=== PATIENT | male | born 1940 | race Caucasian/White ===

== ENCOUNTER 2018-03-14 17:28 | Inpatient (IN) | payer BC, MEDICARE ==
[~2018-03-14] VITALS: Ht 157.5 cm; Wt 51.9 kg
[2018-03-14] VITALS (7 sets, daily range): BP systolic 92–124; BP diastolic 62–92
[~2018-03-14 17:28] MED LIST: CARAFATE1 GM/10 ML PO; HYDROCODONE PO; METHOTREXATE PO; METHOTREXATE2.5 MG PO; NORCO 10-325 T1 EACH PO; PREDNISONE5 MG PO; XARELTO15 MG PO; XARELTO20 MG PO
--- OUTSIDE RECORDS SUMMARY | 2018-03-14 17:32 | XMS REPORT ---
[facility] Address Unknown Phone Unavailable Care Team Providers Care Submarine Advisory Team Watch Officer Name Role Phone Unavailable Unavailable Payers Payer Name Policy Type Policy Number Effective Date Expiration Date Problems This patient has no known problems. Allergies, Adverse Reactions, Alerts Allergy Name Allergy Type Status Severity Reaction(s) Onset Date Inactive Date Treating Clinician Comments Sulfa (Sulfonamide Antibiotics) DA Active 2018-01-25 00:00:00 clindamycin DA Active 2018-01-25 00:00:00 Sulfa (Sulfonamide Antibiotics) DA Active U 2018-01-08 00:00:00 clindamycin DA Active SV 2017-04-23 00:00:00 Sulfa (Sulfonamide Antibiotics) DA Active U 2017-04-23 00:00:00 zolpidem DA Active SV 2017-04-23 00:00:00 Medications This patient has no known medications.
[2018-03-14] MEDS ORDERED: DIGOXIN INJ 0.25 MG/ML 2 ML AMP IV ONE (18:00)
[2018-03-14 18:36] LABS: BASOPHILS # (AUTO) 0.1 (0.0-0.1); BASOPHILS % 0.6 % (0.0-1.0); EOSINOPHILS # (AUTO) 0.3 (0.0-0.4); EOSINOPHILS % 3.8 % (0.0-6.0); HEMATOCRIT 38.1 % (38.2-49.6); HEMOGLOBIN 11.9 g/dL (14.0-18.0); LYMPHOCYTES # (AUTO) 1.9 (1.0-3.2); LYMPHOCYTES % 22.8 % (18.0-39.1); MEAN CORPUSCULAR HEMOGLOBIN 30.1 pg (28-32); MEAN CORPUSCULAR HGB CONC 31.2 g/dL (31-35); MEAN CORPUSCULAR VOLUME 96.2 fL (81-99); MONOCYTES # (AUTO) 0.8 (0.2-0.8); MONOCYTES % 10.1 % (4.4-11.3); NEUTROPHILS # (AUTO) 5.1 (2.1-6.9); NEUTROPHILS % 62.2 % (38.7-80.0); PLATELET COUNT 260 x10e3/uL (140-360); RED BLOOD COUNT 3.96 x10e6/uL (4.3-5.7); RED CELL DISTRIBUTION WIDTH 15.5 % (11.7-14.4)
[2018-03-14 18:39] LABS: INR 0.89; PROTHROMBIN TIME 12.9 seconds (11.9-14.5)
[2018-03-14 18:40] LABS: PARTIAL THROMBOPLASTIN TIME 27.3 seconds (23.8-35.5)
--- NOTE | 2018-03-14 18:51 | Diagnostic Imaging Report ---
EXAMINATION: CHEST SINGLE (PORTABLE) INDICATION: Tachycardia. COMPARISON: 02/07/09.. FINDINGS: TUBES and LINES: Right chest Port-A-Cath with distal tip projected on the cavoatrial junction. LUNGS: Lungs are hypoinflated. Patchy density in the lower lobe suggestive of subsegmental atelectasis. Mild prominence of the pulmonary vasculature bilaterally. PLEURA: No pleural effusion or pneumothorax. HEART AND MEDIASTINUM: The cardiac silhouette is mildly enlarged. BONES AND SOFT TISSUES: Status post bilateral shoulder arthroplasty. UPPER ABDOMEN: No free air under the diaphragm. IMPRESSION: Bibasilar subsegmental atelectasis. Cardiomegaly and mild pulmonary venous congestion. Signed by: Dr. Sonya Singh M.D. on 03/14/2018 6:48 PM
[2018-03-14 18:52] LABS: ALANINE AMINOTRANSFERASE 42 IU/L (0-55); ALBUMIN 3.8 g/dL (3.5-5.0); ALBUMIN/GLOBULIN RATIO 1.5 (0.8-2.0); ALKALINE PHOSPHATASE 90 IU/L (40-150); ANION GAP 14.3 mmol/L (8-16); BLOOD UREA NITROGEN 30 mg/dL (7-26); BUN/CREATININE RATIO 15 (6-25); CALCIUM 8.7 mg/dL (8.4-10.2); CARBON DIOXIDE 23 mmol/L (22-29); CHLORIDE 105 mmol/L (98-107); CREATINE KINASE 58 IU/L (30-200); CREATININE, SERUM 2.03 mg/dL (0.72-1.25); EST GLOMERULAR FILTRATION RATE 32 ML/MIN (60-); GLUCOSE 111 mg/dL (74-118); LIPASE 18 U/L (8-78); POTASSIUM 4.3 mmol/L (3.5-5.1); SODIUM 138 mmol/L (136-145)
[2018-03-14 19:11] LABS: THYROID STIMULATING HORMONE 4.972 uIU/mL (0.350-4.940)
[2018-03-14 19:18] LABS: CLARITY,URINE CLEAR (CLEAR); COLOR,URINE YELLOW (YELLOW); KETONES,URINE NEGATIVE (NEGATIVE); LEUKOCYTE ESTERASE ,URINE NEGATIVE (NEGATIVE); NITRITE,URINE NEGATIVE (NEGATIVE); PROTEIN,URINE DIPSTICK 1+ (NEGATIVE)
[2018-03-14 19:19] LABS: BILIRUBIN,URINE NEGATIVE (NEGATIVE); URINE UROBILINOGEN 0.2 mg/dL (0.2 - 1)
[2018-03-14 19:21] LABS: BACTERIA,URINE FEW /HPF; EPITHELIAL CELLS,URINE FEW /LPF; RBC,URINE 0-5 /HPF (0-5); WBC,URINE (MAN) 0-5 /HPF (0-5)
[2018-03-14 19:42] LABS: B-TYPE NATRIURETIC PEPTIDE2 247.8 pg/mL (0-100)
[2018-03-14] MEDS ORDERED: AMIODARONE HCL 360MG 200 ML IV SCH (19:45)
[2018-03-14] MEDS ORDERED: AMIODARONE HCL 150MG 100 ML IV SCH (19:45)
[2018-03-14] MEDS ORDERED: AMIODARONE 900MG 500 ML IV SCH (20:00)
[2018-03-14] MEDS ORDERED: AMIODARONE HCL 100 ML IV ONE (20:03)
[2018-03-14] MEDS ORDERED: SODIUM CHLORIDE FLUSH 10 ML SYR INJ PRN (20:15)
[2018-03-14] MEDS ORDERED: AMLODIPINE BESY10 MG PO (21:44)
[2018-03-14] MEDS ORDERED: PREDNISONE5 MG PO (21:44)
[2018-03-14] MEDS ORDERED: ASPIRIN EC81 MG PO (21:44)
[2018-03-14] MEDS ORDERED: HYDRALAZINE HCL25 MG PO (21:44)
[2018-03-14] MEDS ORDERED: SODIUM BICARBO650 MG PO (21:44)
[2018-03-14] MEDS ORDERED: METOPROLOL TART50 MG PO (21:44)
[2018-03-14] MEDS ORDERED: MORPHINE SULFAT60 MG PO (21:44)
[2018-03-14] MEDS ORDERED: LEVOTHYROXINE25 MCG PO (21:44)
[2018-03-14] MEDS ORDERED: HYDROCODON-ACE1 EAC9 (21:44)
[2018-03-15] VITALS (55 sets, daily range): BP systolic 87–132; BP diastolic 27–95
[2018-03-15] MEDS ORDERED: AMIODARONE HCL 360MG 200 ML IV SCH
[2018-03-15] MEDS: AMIODARONE 900MG 500 ML IV SCH (02:32)
[2018-03-15 04:53] LABS: BASOPHILS % 0.7 % (0.0-1.0); EOSINOPHILS # (AUTO) 0.3 (0.0-0.4); EOSINOPHILS % 4.9 % (0.0-6.0); HEMATOCRIT 32.4 % (38.2-49.6); HEMOGLOBIN 10.6 g/dL (14.0-18.0); LYMPHOCYTES # (AUTO) 1.3 (1.0-3.2); LYMPHOCYTES % 21.5 % (18.0-39.1); MEAN CORPUSCULAR HEMOGLOBIN 30.4 pg (28-32); MEAN CORPUSCULAR HGB CONC 32.7 g/dL (31-35); MEAN CORPUSCULAR VOLUME 92.8 fL (81-99); MONOCYTES # (AUTO) 0.6 (0.2-0.8); MONOCYTES % 10.8 % (4.4-11.3); NEUTROPHILS # (AUTO) 3.6 (2.1-6.9); NEUTROPHILS % 61.6 % (38.7-80.0); PLATELET COUNT 218 x10e3/uL (140-360); RED BLOOD COUNT 3.49 x10e6/uL (4.3-5.7); RED CELL DISTRIBUTION WIDTH 15.1 % (11.7-14.4)
[2018-03-15 05:19] LABS: CREATINE KINASE 36 IU/L (30-200)
[2018-03-15 05:45] LABS: ALBUMIN 3.1 g/dL (3.5-5.0); ALBUMIN/GLOBULIN RATIO 1.7 (0.8-2.0); ANION GAP 13.1 mmol/L (8-16); CALCIUM 8.1 mg/dL (8.4-10.2); CREATININE, SERUM 1.67 mg/dL (0.72-1.25); POTASSIUM 4.1 mmol/L (3.5-5.1)
[2018-03-15] MEDS: HYDROCODONE/APAP 10MG-325MG TAB PO PRN ×3 (06:20→14:56)
[2018-03-15] MEDS ORDERED: MORPHINE SULFATE 30 MG TAB ER PO SCH (09:00)
[2018-03-15] MEDS ORDERED: LEVOTHYROXINE SODIUM 25 MCG TABLET PO SCH (09:00)
[2018-03-15] MEDS ORDERED: RIVAROXABAN 20 MG TABLET PO SCH (09:00)
[2018-03-15] MEDS ORDERED: AMLODIPINE BESYLATE 10 MG TAB PO SCH ×2 (09:00)
[2018-03-15] MEDS: SODIUM BICARBONATE 650 MG TAB PO SCH ×2 (09:23→17:34)
[2018-03-15] MEDS: METOPROLOL TARTRATE 50 MG TAB PO SCH ×2 (09:30→20:29)
[2018-03-15] MEDS: AMLODIPINE BESYLATE 5 MG TAB PO SCH (09:30)
[2018-03-15] MEDS: ASPIRIN 81 MG ENTERIC COATED PO SCH (09:30)
[2018-03-15] MEDS: PREDNISONE 5 MG TAB PO SCH (09:30)
--- NOTE | 2018-03-15 09:47 | Consultation ---
DATE OF CONSULTATION: March 14, 2018 REASON FOR CONSULTATION: AFib. HPI: This is a pleasant 77-year-old male that presented with palpitations. According to the patient, she started having rapid heartbeat in the 130s that he decided to come into the emergency room for evaluation. He stated he has been compliant with his medications, avoided caffeine and does not really know what is going on. He has a history of AFib and hypothyroidism. He was recently admitted and discharged from [facility] in January after having a left shoulder surgery, and went to rehab and recovered real good, and was discharged home. He denied any chest pain, any dizziness, any shortness of breath, or diaphoresis. Troponin was negative. EKG with AFib with RVR. BNP 247. TSH 4.9. He was started on an amiodarone drip from the emergency room, and heart rate is controlled now, but fluctuates. PAST MEDICAL HISTORY: Hypertension, right leg DVT, history of prostate cancer, history of cancer of sarcoma, rheumatoid arthritis, CKD, anemia, and diabetes. SURGICAL HISTORY: Cholecystectomy, prostate surgery, left and right shoulder surgery. FAMILY HISTORY: Noncontributory. SOCIAL HISTORY: He lives at home with the . No smoking. No drinking. MEDICATIONS: See med list. ALLERGIES: HE HAS MULTIPLE ALLERGIES. SEE CHART. REVIEW OF SYSTEMS: Negative except as mentioned above. PHYSICAL EXAMINATION VITAL SIGNS: Temperature 98, heart rate 81, blood pressure 118/87, respirations 16, oxygen saturation 95% on room air. GENERAL: He is awake, alert and oriented times 3. HEENT: Mucous membrane moist. NECK: Supple. LUNGS: Bilateral clear to auscultation. CARDIOVASCULAR: Irregularly irregular. ABDOMEN: Soft. NEUROLOGICAL: Intact. EXTREMITIES: With no edema. LABS: Sodium 137, potassium 4.1, chloride 108, CO2 20, BUN 26, creatinine 1.67, glucose 91. White blood cells 5.91, hemoglobin 10.6, hematocrit 32.4, and platelets 218,0008. PT 12.9, PTT 27.3 and INR 0.89. IMPRESSION 1. Atrial fibrillation. 2. Hypothyroidism. 3. Anemia. 4. Chronic kidney disease. 5. History of prostate cancer. 6. Recent left shoulder surgery. ASSESSMENT AND PLAN 1. He was started on an amiodarone drip. Will continue the same and switch to p.o. tonight. 2. He was at [facility] last month and had a recent echo with reserved systolic function with EF 50% to 55%. Will continue his home medications. Further cardiac workup pending clinical course. Thank you for this consultation. He was anticoagulated and will continue the same also. DICTATED BY MOLLY TILLMAN NP Job#: [id number] CUONG
[2018-03-15] MEDS: MORPHINE SULFATE 30 MG TAB ER PO SCH ×2 (10:55→20:30)
[2018-03-15 12:48] LABS: CREATINE KINASE 58 IU/L (30-200)
--- NOTE | 2018-03-15 17:25 | History and Physical ---
CHIEF COMPLAINT: Rapid heartbeat and shortness of breath. HISTORY OF PRESENT ILLNESS: This is a 77-year-old male with a past medical history of carcinoma of prostate, hypertension, DVT of the leg, recent left hip surgery, severe rheumatoid arthritis on prednisone 5 mg daily, who was in his usual state of health until the last 2 days he started developing some palpitation and increased blood pressure. Patient came to ER. ER shows AFib with rapid ventricular response at 121 per minute. No chest pain but has some shortness of breath. No bleeding per rectum, no hematemesis, no melena. No leg pain. Has left hip pain. No backache. No burning on urination. No seizures. No focal weakness. No diarrhea, no constipation. PAST MEDICAL HISTORY 1. Hypertension. 2. Carcinoma of prostate. 3. DVT of lower extremity, chronic. 4. Severe rheumatoid arthritis. PAST SURGICAL HISTORY: History of left hip replacement. ALLERGY: ALLERGIC TO SULFA AND CLINDAMYCIN. SOCIAL HISTORY: Patient , lives with his . HABITS: Denies smoking, denies alcohol use, denies illicit drug use. MEDICATION: List attached. REVIEW OF SYSTEMS CONSTITUTIONAL: Generalized fatigue and weakness. HEENT: No diplopia. No blurring of vision. CARDIOPULMONARY: No chest pain. Has some palpitation and shortness of breath. ALIMENTARY: No nausea, no vomiting, no diarrhea, no constipation. GENITOURINARY: Has no dysuria, no hematuria. MUSCULOSKELETAL: No joint pains. CENTRAL NERVOUS SYSTEM: No focal weakness. PHYSICAL EXAMINATION GENERAL: A 77-year-old male who is alert, oriented x3. No gross or acute respiratory distress. VITAL SIGNS: Temperature 98.2, pulse rate 110 per minute, respiratory rate 18, blood pressure 104/77. HEENT: Head atraumatic, normocephalic. Pupils are bilaterally equal and reactive to light. Extraocular muscles intact. NECK: Supple. No JVD. No carotid bruit. SKIN: Dry. LUNGS: Clear to auscultation and percussion bilaterally. No added sound. HEART: S1 and S2. Irregularly irregular. No S3, no S4, no murmur. ABDOMEN: Soft, nontender. No guarding, no rigidity. EXTREMITIES: No pedal edema. Peripheral pulses +1. MUSCULOSKELETAL: Has joint deformity seen. CENTRAL NERVOUS SYSTEM: Grossly nonfocal. Chest x-ray: Cardiomegaly, mild congestion. White count 8.23, hemoglobin 11.9, hematocrit 38.1, platelet 260. Chemistry: Sodium 138, potassium 4.3, BUN 30, creatinine 2.03. LFTs: AST 48. TSH 4.972. BNP 247. CK, CK-MB, troponin negative. EKG: AFib with new AFib with a rapid ventricular response at 121 per minute. ASSESSMENT 1. Atrial fibrillation with rapid ventricular response. 2. Mild congestive heart failure. 3. Hypertension. 4. Chronic deep vein thrombosis. 5. History of rheumatoid arthritis. 6. Left hip replacement. PLAN: Admit to ICU. IV amiodarone drip. Cardiology consult, Dr. Pino. Continue amlodipine 5 daily, metoprolol 25 b.i.d. Case discussed with Dr. Pino. Continue Eliquis 2.5 b.i.d. Lab tomorrow, BMP. Job#: [id number] EV
[2018-03-15] MEDS: FAMOTIDINE 20 MG TAB PO SCH (17:34)
[2018-03-15] MEDS: AMIODARONE HCL 200 MG TAB PO SCH (20:29)
[2018-03-15] MEDS: APIXAB 2.5 MG TABLET PO SCH (20:29)
--- NOTE | 2018-03-15 21:27 | NUR ---
report given top Mckayla BARAHONA
--- NOTE | 2018-03-15 22:01 | NUR ---
patient transferred to [facility] in stable condition. The receiving nurse Mckayla will continue the care of the patient. Patient was alert and oriented and vitals signs were: BP117/86, HR98, RR18, 02 100% RA.
--- NOTE | 2018-03-15 22:05 | NUR ---
RECEIVED REPORT FROM REBEL BARAHONA, PT TRANSFERRED TO #[id number], PT AAOX3, BREATHING EVEN AND UNLABORED.PT MADE COMFORTABLE IN ROOM,
[2018-03-16] MEDS: HYDROCODONE/APAP 10MG-325MG TAB PO PRN ×4 (00:19→23:52)
[2018-03-16] MEDS: AMIODARONE 900MG 500 ML IV SCH (02:01)
[2018-03-16 04:00] VITALS: BP 118/88
[2018-03-16] MEDS: LEVOTHYROXINE SODIUM 25 MCG TABLET PO SCH (05:46)
[2018-03-16 06:04] LABS: ANION GAP 13.6 mmol/L (8-16); CALCIUM 8.2 mg/dL (8.4-10.2); CREATININE, SERUM 1.73 mg/dL (0.72-1.25); POTASSIUM 4.6 mmol/L (3.5-5.1)
--- NOTE | 2018-03-16 06:06 | NUR ---
NO CHANGE IN PT'S STATUS, PT RESTING IN BED WITH EYES CLOSED BREATHING EVEN AND UNLABORED. WILL REPORT OFF TO TOBIAS BARAHONA.
[2018-03-16 06:23] LABS: CREATINE KINASE 25 IU/L (30-200)
[2018-03-16 08:00] VITALS: BP_SYST 118; BP_SYST 127; BP_DIAS 88; BP_DIAS 93
[2018-03-16] MEDS: FAMOTIDINE 20 MG TAB PO SCH ×2 (08:27→17:01)
[2018-03-16] MEDS: METOPROLOL TARTRATE 50 MG TAB PO SCH ×2 (08:28→20:49)
[2018-03-16] MEDS: ASPIRIN 81 MG ENTERIC COATED PO SCH (08:28)
[2018-03-16] MEDS: AMIODARONE HCL 200 MG TAB PO SCH ×2 (08:28→17:01)
[2018-03-16] MEDS: AMLODIPINE BESYLATE 5 MG TAB PO SCH (08:29)
[2018-03-16] MEDS: SODIUM BICARBONATE 650 MG TAB PO SCH ×2 (08:29→17:01)
[2018-03-16] MEDS: PREDNISONE 5 MG TAB PO SCH (08:29)
[2018-03-16] MEDS: MORPHINE SULFATE 30 MG TAB ER PO SCH ×2 (08:29→20:48)
[2018-03-16] MEDS: APIXAB 2.5 MG TABLET PO SCH ×2 (08:29→20:46)
[2018-03-16] MEDS ORDERED: AMIODARONE HCL 200 MG TAB PO SCH (09:00)
[2018-03-16] MEDS: ONDANSETRON HCL INJ 2 MG/ML VIAL IV PRN ×3 (11:43→19:53)
[2018-03-16 12:00] VITALS: BP 104/78
[2018-03-16] MEDS ORDERED: METOPROLOL TARTRATE INJ 1 MG/ML VIAL IV PRN (12:45)
[2018-03-16] MEDS ORDERED: DIGOXIN INJ 0.25 MG/ML 2 ML AMP IV ONE (13:00)
[2018-03-16 14:13] LABS: CHOL/HDL RATIO 2.7 (3.9-4.7); MAGNESIUM 2.5 MG/DL (1.3-2.1); PHOSPHORUS 3.2 MG/DL (2.3-4.7)
--- NOTE | 2018-03-16 15:27 | NUR ---
Nutrition Screen Note RD Recommendation for Physician: Continue diet as ordered Plan of Care: RD following, monitoring for adequacy and tolerance Nutrition reason for involvement: MD Consult Primary Diagnose(s): atrial fibrillation with RVR Ht: 62in Wt:130.44lbs BMI:23.9 kg/m2 IBW:118lbs RD Assessment:(03/16/2018) Initial encounter with patient. Diet Hx: Pt has no known food allergies. Medications: MAR reviewed. Physical activity and function: pt is able to feed himself. Nutrition - focused physical findings: no N, V, D, some biting chewing difficulty with beef, but does not desire a texture modification. Pt avoids eating eggs. Current Diet: cardiac diet Malnutrition Evaluation (03/16/2018) The patient does not meet criteria for a specified degree of malnutrition at this time. Will re-evaluate at follow-up as appropriate. Diet Education Needs Assessment: Diet education not indicated. Diet Adequacy: Meeting calorie needs, Meeting protein needs, Meeting fluid needs Tolerance: Tolerating PO Nutrition Care Level: Robert Herr RD, LD, [facility]
[2018-03-16 16:00] VITALS: BP 105/85
--- NOTE | 2018-03-16 19:20 | NUR ---
REPORT GIVEN BY TOBIAS BARAHONA, BOTH NURSES GAVE REPORT AT PT'S BEDSIDE. PT SITTING UP ON THE SIDE OF THE BED, STATES HE'S NAUSEATED, INFORMED HIM THIS NURSE WILL MEDICATE HIM WITH PRN ZOFRAN. PT STATES OK.
[2018-03-16 20:00] VITALS: BP 144/97
[2018-03-16 23:58] VITALS: BP 124/94
--- NOTE | 2018-03-17 | NUR ---
PT RESTING IN BED, MEDICATED WITH NORCO 10MG FOR CHRONIC PAIN, INSTRUCTED PT TO RELAX, PT STATED HE WOULD TRY.INFORMED HIM NURSE WILL CHECK ON HIM AND PLEASE NOTIFY NURSE IF THERES ANYTHING I COULD DO FOR HIM
[2018-03-17] MEDS: ONDANSETRON HCL INJ 2 MG/ML VIAL IV PRN ×2 (03:09→19:32)
--- NOTE | 2018-03-17 03:13 | NUR ---
pt nauseated and vomiting, medicated with zofran 4mg prn dose, pt given cold cloth for his head, and informed pt nurse will be back to check on him, pt verbalized understanding, call valencia in reach.
[2018-03-17 04:00] VITALS: BP 120/91
[2018-03-17] MEDS: HYDROCODONE/APAP 10MG-325MG TAB PO PRN ×2 (05:35→19:32)
--- NOTE | 2018-03-17 05:35 | NUR ---
Complete bed bath given, pt tolerated well, medicated for generalized pain. call valencia in reach, instructed pt to call when necessary. pt verbalized understanding
[2018-03-17] MEDS: LEVOTHYROXINE SODIUM 25 MCG TABLET PO SCH (06:00)
[2018-03-17 08:00] VITALS: BP 109/92
[2018-03-17] MEDS: FAMOTIDINE 20 MG TAB PO SCH ×2 (08:41→17:00)
[2018-03-17] MEDS: SODIUM BICARBONATE 650 MG TAB PO SCH ×2 (08:42→17:00)
[2018-03-17] MEDS: AMIODARONE HCL 200 MG TAB PO SCH ×2 (08:42→17:00)
[2018-03-17] MEDS: ASPIRIN 81 MG ENTERIC COATED PO SCH (08:42)
[2018-03-17] MEDS: PREDNISONE 5 MG TAB PO SCH (08:42)
[2018-03-17] MEDS: METOPROLOL TARTRATE 50 MG TAB PO SCH ×2 (08:42→19:37)
[2018-03-17] MEDS: APIXAB 2.5 MG TABLET PO SCH ×2 (08:42→21:41)
[2018-03-17] MEDS: MORPHINE SULFATE 30 MG TAB ER PO SCH ×2 (08:42→21:41)
[2018-03-17] MEDS: AMLODIPINE BESYLATE 5 MG TAB PO SCH (09:00)
[2018-03-17 12:00] VITALS: BP 113/91
[2018-03-17] MEDS: SUCRALFATE 1 GM TAB PO SCH (17:00)
[2018-03-17 19:32] VITALS: BP 90/75
[2018-03-17 19:36] VITALS: BP 90/75
--- NOTE | 2018-03-17 20:27 | NUR ---
patient resting with closed eyes, just medicated with [place] for back pain and Zofran for nausea earlier, vitals checked, no distress noted, bed alarm is on will continue monitoring.
--- NOTE | 2018-03-17 23:07 | NUR ---
Patient ok to go to floor from Cardiology stand point per Dr. Amberly Lou. RN spoke to Dr. Yash Emmanuel and obtained floor orders with telemetry.
[2018-03-17 23:26] VITALS: BP 105/91
--- NOTE | 2018-03-17 23:46 | NUR ---
just transferred patient to 103, nurse Awilda BARAHONA received the reports. he is stable, awake alert oriented, telemetry no 2402 is on. vitals just checked prior transferred;within normal level.
[2018-03-18] VITALS (10 sets, daily range): BP systolic 94–179; BP diastolic 58–91
[2018-03-18] MEDS: HYDROCODONE/APAP 10MG-325MG TAB PO PRN (01:48)
[2018-03-18] MEDS: ONDANSETRON HCL INJ 2 MG/ML VIAL IV PRN ×2 (05:03→12:42)
[2018-03-18] MEDS: LEVOTHYROXINE SODIUM 25 MCG TABLET PO SCH (05:03)
[2018-03-18 05:27] LABS: ALBUMIN 3.8 g/dL (3.5-5.0); ALBUMIN/GLOBULIN RATIO 1.3 (0.8-2.0); ANION GAP 16.6 mmol/L (8-16); CALCIUM 9.3 mg/dL (8.4-10.2); CREATININE, SERUM 2.07 mg/dL (0.72-1.25); POTASSIUM 4.6 mmol/L (3.5-5.1)
[2018-03-18 06:20] LABS: BASOPHILS # (AUTO) 0.1 (0.0-0.1); BASOPHILS % 0.6 % (0.0-1.0); EOSINOPHILS # (AUTO) 0.3 (0.0-0.4); EOSINOPHILS % 3.7 % (0.0-6.0); HEMATOCRIT 40.3 % (38.2-49.6); LYMPHOCYTES # (AUTO) 1.5 (1.0-3.2); LYMPHOCYTES % 18.7 % (18.0-39.1); MEAN CORPUSCULAR HEMOGLOBIN 30.4 pg (28-32); MEAN CORPUSCULAR HGB CONC 32.3 g/dL (31-35); MEAN CORPUSCULAR VOLUME 94.2 fL (81-99); MONOCYTES # (AUTO) 0.7 (0.2-0.8); MONOCYTES % 9.2 % (4.4-11.3); NEUTROPHILS # (AUTO) 5.3 (2.1-6.9); NEUTROPHILS % 67.3 % (38.7-80.0); PLATELET COUNT 264 x10e3/uL (140-360); RED BLOOD COUNT 4.28 x10e6/uL (4.3-5.7); RED CELL DISTRIBUTION WIDTH 14.6 % (11.7-14.4)
[2018-03-18] MEDS ORDERED: PANTOPRAZOLE SOD 40 MG TABEC PO SCH (07:30)
[2018-03-18] MEDS: AMIODARONE HCL 200 MG TAB PO SCH (08:45)
[2018-03-18] MEDS: SODIUM BICARBONATE 650 MG TAB PO SCH ×2 (08:45→17:23)
[2018-03-18] MEDS: AMLODIPINE BESYLATE 5 MG TAB PO SCH (08:45)
[2018-03-18] MEDS: PREDNISONE 5 MG TAB PO SCH (08:45)
[2018-03-18] MEDS: METOPROLOL TARTRATE 50 MG TAB PO SCH ×2 (08:45→21:53)
[2018-03-18] MEDS: ASPIRIN 81 MG ENTERIC COATED PO SCH (08:45)
[2018-03-18] MEDS: SUCRALFATE 1 GM TAB PO SCH ×3 (08:45→17:23)
[2018-03-18] MEDS: APIXAB 2.5 MG TABLET PO SCH ×2 (08:45→21:53)
[2018-03-18] MEDS: FAMOTIDINE 20 MG TAB PO SCH ×2 (08:45→17:23)
[2018-03-18] MEDS: MORPHINE SULFATE 30 MG TAB ER PO SCH ×2 (09:10→21:53)
--- NOTE | 2018-03-18 09:31 | NUR ---
spoke with md boston regarding discharge . md sharif discharge , reviewed bp meds at this time (adjusting medication orders ) given, md ledezma rounded states pt can go home when pt family brings bottles of medicine to show nurse prior to dc. orders received
[2018-03-18] MEDS ORDERED: METOPROLOL TARTRATE 50 MG TAB PO SCH (12:00)
[2018-03-18] MEDS: PANTOPRAZOLE 40 MG 10ML VIAL IV SCH (17:23)
--- NOTE | 2018-03-18 19:34 | NUR ---
RECEIVED PATIENT AAOX3, RESTING IN BED. STABLE CONDITION. DENIES ANY NEEDS. BED LOCKED AND IN LOWEST POSITION. CALL LIGHT WITHIN EASY REACH. WILL CONTINUE TO MONITOR THE PATIENT CLOSELY.
[2018-03-19] VITALS (8 sets, daily range): BP systolic 107–139; BP diastolic 69–92
[2018-03-19] MEDS ORDERED: PANTOPRAZOLE 40 MG 10ML VIAL IV STA (00:25)
[2018-03-19] MEDS: LEVOTHYROXINE SODIUM 25 MCG TABLET PO SCH (05:51)
--- NOTE | 2018-03-19 07:07 | NUR ---
pt sitting up at edge of bed aa0x3. pt is in no s.s of distress. pt is sl to the L fa 22. site is clean and dry. pt aware of stool sample collection for today. will bennett caballero for plans in terms of EGD procedure planned
[2018-03-19] MEDS: APIXAB 2.5 MG TABLET PO SCH ×2 (09:00→20:38)
[2018-03-19] MEDS: METOPROLOL TARTRATE 50 MG TAB PO SCH ×2 (09:00→21:30)
[2018-03-19] MEDS: MORPHINE SULFATE 30 MG TAB ER PO SCH ×3 (09:00→21:30)
[2018-03-19] MEDS: ASPIRIN 81 MG ENTERIC COATED PO SCH (09:22)
[2018-03-19] MEDS: PANTOPRAZOLE 40 MG 10ML VIAL IV SCH ×2 (09:22→16:44)
[2018-03-19] MEDS: AMIODARONE HCL 200 MG TAB PO SCH (09:22)
[2018-03-19] MEDS: FAMOTIDINE 20 MG TAB PO SCH ×2 (09:22→16:43)
[2018-03-19] MEDS: SUCRALFATE 1 GM TAB PO SCH ×3 (09:22→16:43)
[2018-03-19] MEDS: PREDNISONE 5 MG TAB PO SCH (09:24)
[2018-03-19] MEDS: SODIUM BICARBONATE 650 MG TAB PO SCH ×2 (09:24→16:44)
[2018-03-19] MEDS: HYDROCODONE/APAP 10MG-325MG TAB PO PRN (09:24)
[2018-03-19] MEDS: ONDANSETRON HCL INJ 2 MG/ML VIAL IV PRN (20:59)
--- NOTE | 2018-03-19 23:13 | NUR ---
consent for EGD signed and placed to chart. patient education printouts provided to patient. bed locked, and in lowest position, call light within easy reach, and bed alarm activated.
[2018-03-20] VITALS (9 sets, daily range): BP systolic 91–118; BP diastolic 56–80
[2018-03-20] MEDS: HYDROCODONE/APAP 10MG-325MG TAB PO PRN ×2 (05:15→14:15)
[2018-03-20] MEDS: LEVOTHYROXINE SODIUM 25 MCG TABLET PO SCH (05:15)
[2018-03-20 05:32] LABS: BASOPHILS # (AUTO) 0.1 (0.0-0.1); BASOPHILS % 0.7 % (0.0-1.0); EOSINOPHILS # (AUTO) 0.3 (0.0-0.4); EOSINOPHILS % 2.7 % (0.0-6.0); HEMATOCRIT 41.5 % (38.2-49.6); HEMOGLOBIN 13.2 g/dL (14.0-18.0); LYMPHOCYTES # (AUTO) 2.4 (1.0-3.2); LYMPHOCYTES % 20.3 % (18.0-39.1); MEAN CORPUSCULAR HEMOGLOBIN 29.6 pg (28-32); MEAN CORPUSCULAR HGB CONC 31.8 g/dL (31-35); MONOCYTES # (AUTO) 1.1 (0.2-0.8); NEUTROPHILS # (AUTO) 7.8 (2.1-6.9); PLATELET COUNT 265 x10e3/uL (140-360); RED BLOOD COUNT 4.46 x10e6/uL (4.3-5.7); RED CELL DISTRIBUTION WIDTH 14.2 % (11.7-14.4)
[2018-03-20 05:54] LABS: ANION GAP 15.6 mmol/L (8-16); CALCIUM 9.1 mg/dL (8.4-10.2); CREATININE, SERUM 2.2 mg/dL (0.72-1.25); POTASSIUM 4.6 mmol/L (3.5-5.1)
[2018-03-20] MEDS: FAMOTIDINE 20 MG TAB PO SCH ×2 (07:30→17:00)
[2018-03-20] MEDS: SUCRALFATE 1 GM TAB PO SCH ×4 (07:30→20:57)
[2018-03-20] MEDS: PREDNISONE 5 MG TAB PO SCH (09:00)
[2018-03-20] MEDS: ASPIRIN 81 MG ENTERIC COATED PO SCH (09:00)
[2018-03-20] MEDS: MORPHINE SULFATE 30 MG TAB ER PO SCH ×2 (09:00→20:57)
[2018-03-20] MEDS: AMIODARONE HCL 200 MG TAB PO SCH (09:00)
[2018-03-20] MEDS: PANTOPRAZOLE 40 MG 10ML VIAL IV SCH ×2 (09:00→20:57)
[2018-03-20] MEDS: APIXAB 2.5 MG TABLET PO SCH ×2 (09:00→20:57)
[2018-03-20] MEDS: SODIUM BICARBONATE 650 MG TAB PO SCH ×2 (09:00→20:57)
[2018-03-20] MEDS: METOPROLOL TARTRATE 50 MG TAB PO SCH ×2 (09:00→20:57)
--- NOTE | 2018-03-20 10:54 | NUR ---
WHEELED OFF UNIT VIA BED FOR EGD, NO CHANGE IN CONDITION
--- NOTE | 2018-03-20 12:35 | NUR ---
BACK IN ROOM VIA BED, AWAKE, DENIES ANY NEEDS AT THIS TIME, CALL LIGHT WITHIN REACH
--- NOTE | 2018-03-20 12:47 | Operative Report ---
DATE OF PROCEDURE: March 20, 2018 REFERRING PHYSICIAN: Dr. Yash Bañuelos. PROCEDURE PERFORMED: Esophagogastroduodenoscopy. INDICATIONS FOR PROCEDURE: History of melena, nausea and vomiting. MEDICATION: Patient was done under MAC. Please see anesthesiologist's note. PROCEDURE: With patient in left lateral decubitus position, the flexible fiberoptic Olympus gastroscope was introduced into the esophagus under direct visualization without any difficulty. There was some patchy erythema noted in distal esophagus. The scope was then advanced with ease into the stomach and the patient appears to be status post Billroth II. Anastomosis was intact and both efferent and afferent loops. Gastric stump polyps, somewhat large, x2 were removed per snare electrocautery. There was also some patchy intense erythema noted in the gastric stump and biopsies were obtained. The scope was then retroflexed into the gastric stump and the fundus and the cardia appeared to be within normal limits. The scope was then straightened out, was subsequently withdrawn. Patient tolerated the procedure well. IMPRESSIONS 1. Mild distal esophagitis. 2. Status post Billroth II, anastomosis intact. 3. Large gastric stump polyps x2, removed per snare electrocautery. 4. Gastric stump gastritis, biopsied. PLAN: Follow up histology. Add Carafate 1 g p.o. a.c. t.i.d. and nightly. Job#: [id number] TA cc:JOHNY BAÑUELOS MD,
--- NOTE | 2018-03-20 14:18 | NUR ---
MEDICATED PER MD ORDER FOR PAIN 11/16 BACK, TOLERATING PO AT THIS TIME, EDUCATED TO CALL BEFORE GETTING OUT OF BED, PT VERBALIZED UNDERSTANDING, CALL LIGHT WITHIN REACH
--- NOTE | 2018-03-20 15:28 | NUR ---
Nutrition Screen Note RD Recommendation for Physician: -Continue cardiac diet as ordered -Consider Ensure Compact BID if PO <50% Plan of Care: RD following, monitoring for adequacy and tolerance Nutrition reason for involvement: Follow up Primary Diagnose(s): atrial fibrillation with RVR PMHx: carcinoma of prostate, hypertension, DVT of the leg, recent left hip surgery, severe rheumatoid arthritis Ht: 62in Wt: 130.44lbs 03/14; 116.12lb 03/18 (possible inaccurate weight obtained) BMI:23.9kg/m2 IBW: 118lbs RD Assessment: 03/20 Chart reviewed. Pt had colonoscopy today with some polyps removed. During my visit, pt reports improved appetite with ~50-100% recorded PO intake. No GI complains noted. LBM 03/19, black stool per RN. GI is following. Pt has had some weight loss last year but weight remains stable this year at 123lb. No swallowing difficulty noted. Will continue to monitor and follow. (03/16/2018) Initial encounter with patient. Diet Hx: Pt has no known food allergies. Medications: MAR reviewed. Physical activity and function: pt is able to feed himself. Nutrition - focused physical findings: no N, V, D, some biting chewing difficulty with beef, but does not desire a texture modification. Pt avoids eating eggs. Current Diet: cardiac diet Malnutrition Evaluation (03/16/2018) The patient does not meet criteria for a specified degree of malnutrition at this time. Will re-evaluate at follow-up as appropriate. Diet Education Needs Assessment: Diet education not indicated. Diet Adequacy: Meeting calorie needs, Meeting protein needs, Meeting fluid needs Tolerance: Tolerating PO Nutrition Care Level: Low Signed by Awilda Wills, MS, RD, LD
[2018-03-20] MEDS: ONDANSETRON HCL INJ 2 MG/ML VIAL IV PRN (17:18)
--- NOTE | 2018-03-20 19:05 | NUR ---
WALKING ROUNDS PERFORMED, RECEIVED PT LAYING SEMI FOWLERS IN BED, AAOX3, RR EVEN AND NON-LABORED, ON RA. NO S/SX OF DISTRESS NOTED. LEFT PT LAYING SEMI FOWLERS IN BED, BED IN LOW LOCKED POSITION, SIDE RAILS UPX2, CALL LIGHT AND PHONE WITHIN REACH.
[2018-03-20] MEDS ORDERED: PROPOFOL IV EMULSION 10 MG/ML 50 ML VIAL ONE (20:13)
[2018-03-21] VITALS: BP 96/74
[2018-03-21 04:00] VITALS: BP 115/82
[2018-03-21] MEDS: LEVOTHYROXINE SODIUM 25 MCG TABLET PO SCH (04:35)
[2018-03-21] MEDS: HYDROCODONE/APAP 10MG-325MG TAB PO PRN ×2 (04:35→10:30)
[2018-03-21 07:10] VITALS: BP 105/75
--- NOTE | 2018-03-21 07:15 | NUR ---
Walking rounds completed and th pt. is currently sleeping. The siderails are up times two and alarms are activated.
[2018-03-21] MEDS: FAMOTIDINE 20 MG TAB PO SCH (07:30)
[2018-03-21] MEDS: SUCRALFATE 1 GM TAB PO SCH (07:30)
[2018-03-21 08:38] VITALS: BP 105/75
[2018-03-21] MEDS: ONDANSETRON HCL INJ 2 MG/ML VIAL IV PRN (09:19)
[2018-03-21] MEDS: APIXAB 2.5 MG TABLET PO SCH (09:19)
[2018-03-21] MEDS: AMIODARONE HCL 200 MG TAB PO SCH (09:19)
[2018-03-21] MEDS: PANTOPRAZOLE 40 MG 10ML VIAL IV SCH (09:19)
[2018-03-21] MEDS: ASPIRIN 81 MG ENTERIC COATED PO SCH (09:19)
[2018-03-21] MEDS: PREDNISONE 5 MG TAB PO SCH (09:20)
[2018-03-21] MEDS: METOPROLOL TARTRATE 50 MG TAB PO SCH (09:20)
[2018-03-21] MEDS: SODIUM BICARBONATE 650 MG TAB PO SCH (09:21)
[2018-03-21] MEDS: MORPHINE SULFATE 30 MG TAB ER PO SCH (09:21)
[2018-03-21] MEDS ORDERED: PANTOPRAZOLE SOD 40 MG TABEC PO SCH (21:00)
== END 2018-03-21 14:00 | disposition home health service (06) | DRG 309 ==
LOC: ER 17:28 → ERHOLD 21:21 → ICU 22:09 → IMCU 03-15 21:57 → MED/SURG 03-17 23:39
PROVIDERS: ADMIT Internal Medicine; ATTEND Internal Medicine
PROC: 0DB68ZX Excision of Stomach, Via Natural or Artificial Opening Endoscopic, Diagnostic (ICD-10-PCS; principal; 2018-03-20 11:35)
PROC: 0DB68ZX Excision of Stomach, Via Natural or Artificial Opening Endoscopic, Diagnostic (ICD-10-PCS; 2018-03-20 11:35)
DX: I48.2 Chronic atrial fibrillation (principal); I13.0 Hypertensive heart and chronic kidney disease with heart failure and stage 1 through stage 4 chronic kidney disease, or unspecified chronic kidney disease; M06.9 Rheumatoid arthritis, unspecified; I48.91 Unspecified atrial fibrillation; Z79.01 Long term (current) use of anticoagulants; Z86.718 Personal history of other venous thrombosis and embolism; Z96.642 Presence of left artificial hip joint; E03.9 Hypothyroidism, unspecified; D64.9 Anemia, unspecified; Z85.46 Personal history of malignant neoplasm of prostate; K29.70 Gastritis, unspecified, without bleeding; N18.9 Chronic kidney disease, unspecified; I50.9 Heart failure, unspecified
CPT/HCPCS: 36415; 43239; 43251; 71045; 80048; 80053; 80061; 81001; 82306; 82550; 82553; 83605; 83690; 83735; 83880; 84100; 84439; 84443; 84484; 84550; 85025; 85610; 85651; 85730; 87086; 88305; 88312; 93005; 99284; J1160; J2405; J7512

== ENCOUNTER → 2018-12-25 | Day surgery (SDC) | payer MEDICARE ==
--- NOTE | 2018-12-23 11:49 | Diagnostic Imaging Report ---
EXAMINATION: CHEST 2 VIEWS INDICATION: Pre-operative COMPARISON: Chest radiograph of 03/14/2018 FINDINGS: LINES/TUBES:Right chest subclavian port with catheter tip in the superior vena cava. LUNGS:The lungs are well-inflated. No focal consolidation or pulmonary edema. Mild left basilar subsegmental atelectasis. PLEURA:No pleural effusion or pneumothorax. MEDIASTINUM:The cardiomediastinal silhouette appears normal in size and shape. BONES/SOFT TISSUES:No acute osseous injury. Status post right and left total shoulder replacements. Diffuse osteopenia of the spine. ABDOMEN:No free air under the diaphragm. Status post cholecystectomy. IMPRESSION: No focal pneumonia or pulmonary edema. Signed by: Soumya De La Torre MD on 12/23/2018 11:46 AM
[2018-12-23 12:30] LABS: BASOPHILS % 0.5 % (0.0-1.0); EOSINOPHILS # (AUTO) 0.2 (0.0-0.4); EOSINOPHILS % 2.1 % (0.0-6.0); HEMATOCRIT 31.7 % (38.2-49.6); HEMOGLOBIN 9.5 g/dL (14.0-18.0); LYMPHOCYTES # (AUTO) 1.3 (1.0-3.2); LYMPHOCYTES % 16.2 % (18.0-39.1); MEAN CORPUSCULAR HEMOGLOBIN 24.7 pg (28-32); MEAN CORPUSCULAR VOLUME 82.6 fL (81-99); MONOCYTES # (AUTO) 0.8 (0.2-0.8); MONOCYTES % 10.3 % (4.4-11.3); NEUTROPHILS # (AUTO) 5.8 (2.1-6.9); NEUTROPHILS % 70.5 % (38.7-80.0); PLATELET COUNT 336 x10e3/uL (140-360); RED BLOOD COUNT 3.84 x10e6/uL (4.3-5.7)
[2018-12-23 12:49] LABS: ANION GAP 12.8 mmol/L (8-16); CALCIUM 8.8 mg/dL (8.4-10.2); CREATININE, SERUM 1.89 mg/dL (0.72-1.25); POTASSIUM 3.8 mmol/L (3.5-5.1)
[~2018-12-25] MED LIST changes: +AMLODIPINE BESY10 MG PO; +ASPIRIN EC81 MG PO; +BUPIVACAINE 0.25%/EPI 30ML SDV INJ ONE; +CEFAZOLIN SOD 1 GM VIAL ONE; +DEXAMETHASONE SOD PHOS INJ 4 MG/ML VIAL ONE; +DOCUSATE SODIU100 MG PO; +ELIQUIS PO; +FENTANYL CITRATE/PF 100MCG/2 ML INJ ONE; +FOLIC ACID1 MG PO; +FUROSEMIDE40 MG PO; +GLYCOPYRROLATE INJ 1MG/ 5 ML SYR ONE; +HYDRALAZINE HCL25 MG PO; +HYDROCODON-ACE1 EAC9; +HYDROCODONE/APAP 7.5MG-325MG 1 EA TAB ONE; +HYDROCORTISONE SOD SUCCINATE 100 MG VIAL ONE; +LEVOTHYROXINE25 MCG PO; +LIDOCAINE HCL 1% LOCAL INJ 20 ML VIAL ONE; +LIDOCAINE HCL 2% LOCAL INJ 5 ML SDV VIAL INJ ONE; +METOPROLOL TART50 MG PO; +MORPHINE SULFAT60 MG PO; +NEOSTIGMINE 1 MG/ML 10ML VIAL ONE; +NEOSTIGMINE 5 MG/5ML SYR ONE; +ONDANSETRON HCL INJ 2MG/ML 2ML 2 MG/ML VIAL ONE; +PHENYLEPHRINE HCL 1% 10 MG/ML VIAL ONE; +PROPOFOL IV EMULSION 10 MG/ML 20 ML VIAL ONE; +ROCURONIUM BROMIDE 10 MG/ML 5ML VIAL ONE; +SEVOFLURANE INHAL SOLN 250 ML PEN BTL ONE; +SODIUM BICARBO650 MG PO
--- NOTE | 2018-12-25 13:20 | Operative Report ---
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 ANESTHESIA: General. COMPLICATIONS: None. ESTIMATED BLOOD LOSS: 25 mL. DESCRIPTION OF PROCEDURE: With the patient lying in bed in the supine position, under good general endotracheal anesthesia, the scalp and forehead were prepped with Betadine solution and draped in the usual manner. The patient had a lesion that was about 3 cm x 3 cm in size with part of it ulcerated. A wide elliptical incision was then made to include the entire lesion with normal appearing skin all the way around. Incision was deepened through the subcutaneous tissue and all the way down to the bone and the lesion was totally and completely removed, and sent for pathological examination after appropriate marking. Hemostasis was then ascertained. The whole area was then infiltrated with 0.25% Marcaine with epinephrine. Wide flaps then had to be developed all the way down to the ear on the one side and to the lateral aspect of the scalp on the right side, and all the way around in order to be able to mobilize enough skin. The skin did reach, although with some tension and the wound was then closed with interrupted vertical mattress sutures of 2-0 nylon. Pressure dressing was applied. The sponge, lap, and needle counts were correct. The patient tolerated the procedure well and returned to the recovery room in stable condition. MD FARIDEH Louis/MODL /[id number]
[2018-12-25 13:35] VITALS: BP 115/90
== END | disposition home or self-care (01) ==
LOC: OR 06:57
PROVIDERS: ATTEND Surgery
DX: C44.40 Unspecified malignant neoplasm of skin of scalp and neck (principal); C61 Malignant neoplasm of prostate; L98.491 Non-pressure chronic ulcer of skin of other sites limited to breakdown of skin; M06.9 Rheumatoid arthritis, unspecified; I10 Essential (primary) hypertension; I48.91 Unspecified atrial fibrillation; Z88.1 Allergy status to other antibiotic agents; Z88.2 Allergy status to sulfonamides; Z01.810 Encounter for preprocedural cardiovascular examination; Z01.812 Encounter for preprocedural laboratory examination; Z01.818 Encounter for other preprocedural examination; Z79.02 Long term (current) use of antithrombotics/antiplatelets; Z86.718 Personal history of other venous thrombosis and embolism; Z86.73 Personal history of transient ischemic attack (TIA), and cerebral infarction without residual deficits
CPT/HCPCS: 14020; 36415; 71046; 80048; 85025; 88307; 93005; J0690; J1100; J1720; J2001; J2370; J2405; J2704; J2710; J3010; J3490

== ENCOUNTER 2019-01-02 15:34 | Inpatient (IN) | payer MEDICARE ==
[2019-01-02] VITALS (13 sets, daily range): BP systolic 95–134; BP diastolic 71–102
[~2019-01-02] VITALS: Ht 157.5 cm; Wt 55.5 kg
[~2019-01-02 15:34] MED LIST changes: -BUPIVACAINE 0.25%/EPI 30ML SDV INJ ONE; -CEFAZOLIN SOD 1 GM VIAL ONE; -DEXAMETHASONE SOD PHOS INJ 4 MG/ML VIAL ONE; -FENTANYL CITRATE/PF 100MCG/2 ML INJ ONE; -GLYCOPYRROLATE INJ 1MG/ 5 ML SYR ONE; -HYDROCODONE/APAP 7.5MG-325MG 1 EA TAB ONE; -HYDROCORTISONE SOD SUCCINATE 100 MG VIAL ONE; -LIDOCAINE HCL 1% LOCAL INJ 20 ML VIAL ONE; -LIDOCAINE HCL 2% LOCAL INJ 5 ML SDV VIAL INJ ONE; -NEOSTIGMINE 1 MG/ML 10ML VIAL ONE; -NEOSTIGMINE 5 MG/5ML SYR ONE; -ONDANSETRON HCL INJ 2MG/ML 2ML 2 MG/ML VIAL ONE; -PHENYLEPHRINE HCL 1% 10 MG/ML VIAL ONE; -PROPOFOL IV EMULSION 10 MG/ML 20 ML VIAL ONE; -ROCURONIUM BROMIDE 10 MG/ML 5ML VIAL ONE; -SEVOFLURANE INHAL SOLN 250 ML PEN BTL ONE
--- NOTE | 2019-01-02 15:54 | NUR ---
patient ambulated to room 193 for admission (direct admit). using cane. gait stable
[2019-01-02] MEDS ORDERED: AMIODARONE HCL 150MG 100 ML IV ONE (16:15)
[2019-01-02] MEDS ORDERED: AMIODARONE HCL 900 MG in DEXTROSE 5% 500ML 500 ML IV SCH (16:15)
[2019-01-02] MEDS ORDERED: AMIODARONE 900MG 500 ML IV SCH ×2 (16:45→23:00)
[2019-01-02] MEDS: APIXABAN 5 MG TABLET PO SCH (17:14)
--- NOTE | 2019-01-02 18:45 | NUR ---
20g p.iv started to right forearm without difficulty.
[2019-01-02 19:10] LABS: BASOPHILS % 0.5 % (0.0-1.0); EOSINOPHILS % 0.5 % (0.0-6.0); HEMATOCRIT 29.8 % (38.2-49.6); HEMOGLOBIN 8.8 g/dL (14.0-18.0); LYMPHOCYTES # (AUTO) 0.8 (1.0-3.2); LYMPHOCYTES % 9.8 % (18.0-39.1); MEAN CORPUSCULAR HEMOGLOBIN 23.8 pg (28-32); MEAN CORPUSCULAR HGB CONC 29.5 g/dL (31-35); MEAN CORPUSCULAR VOLUME 80.8 fL (81-99); MONOCYTES # (AUTO) 0.7 (0.2-0.8); MONOCYTES % 8.1 % (4.4-11.3); NEUTROPHILS # (AUTO) 6.6 (2.1-6.9); NEUTROPHILS % 80.9 % (38.7-80.0); PLATELET COUNT 299 x10e3/uL (140-360); RED BLOOD COUNT 3.69 x10e6/uL (4.3-5.7); RED CELL DISTRIBUTION WIDTH 15.2 % (11.7-14.4)
[2019-01-02 19:22] LABS: ALBUMIN 3.3 g/dL (3.5-5.0); ALBUMIN/GLOBULIN RATIO 1.4 (0.8-2.0); ANION GAP 12.4 mmol/L (8-16); CALCIUM 8.7 mg/dL (8.4-10.2); CREATININE, SERUM 2.02 mg/dL (0.72-1.25); MAGNESIUM 2.3 MG/DL (1.3-2.1); POTASSIUM 3.4 mmol/L (3.5-5.1)
--- NOTE | 2019-01-02 19:40 | Diagnostic Imaging Report ---
A single frontal view of the chest. HISTORY: Shortness of breath, A. fib COMPARISON: Chest radiograph December 23, 2018. DISCUSSION: Portable technique, limits sensitivity of the exam. Multiple overlying artifacts. Tubes/Lines: Unchanged appearance of the right chest port. Lungs and pleura: Low lung volumes result in bibasilar vascular crowding, accentuation of the pulmonary interstitial markings, central pulmonary vasculature, and the cardiac silhouette. Allowing for these limitations, the findings are as follows: Mild patchy retrocardiac opacity. No definite pleural effusion or pneumothorax is identified. Heart and mediastinum: The cardiomediastinal silhouette appear(s) unchanged. Bones and soft tissues: Bilateral total shoulder arthroplasties. IMPRESSION: Patchy retrocardiac opacity, may reflect atelectasis, pneumonia, and/or aspiration in the appropriate setting. Recommend short term follow up routine PA and lateral chest radiographs, in 6 to 8 weeks, to evaluate for resolution. Signed by: Dr. Kelton Asher D.O., M.M.M. on 01/02/2019 7:36 PM
[2019-01-02] MEDS: HYDROCODONE/APAP 10MG-325MG TAB PO PRN (19:50)
[2019-01-02] MEDS ORDERED: POTASSIUM CHLORIDE 10MEQ EA PO ONE (20:15)
[2019-01-02] MEDS: METOPROLOL TARTRATE 25 MG TAB PO SCH (20:43)
[2019-01-02] MEDS: AZITHROMYCIN 500MG/NS 250 ML 250 ML IV SCH (21:10)
[2019-01-02] MEDS: FAMOTIDINE 20 MG/2 ML VIAL IV SCH (21:10)
[2019-01-02] MEDS: CEFTRIAXONE SOD 2 GM/NS 100 ML 100 ML IV SCH (22:29)
[2019-01-03] VITALS (24 sets, daily range): BP systolic 85–122; BP diastolic 55–98
[2019-01-03] MEDS: METOPROLOL TARTRATE 25 MG TAB PO SCH ×4 (03:28→21:00)
[2019-01-03] MEDS: HYDROCODONE/APAP 10MG-325MG TAB PO PRN ×3 (03:29→15:42)
--- NOTE | 2019-01-03 04:48 | Consultation ---
DATE OF CONSULTATION: 01/02/2019 CHIEF COMPLAINT: Chest pain, shortness of breath and palpitation. HISTORY OF PRESENT ILLNESS: This is a 78-year-old male with a past medical history of atrial fibrillation, congestive heart failure, carcinoma of the prostate, hypertension, DVT in lower extremities, severe rheumatoid arthritis, chronic pain syndrome, who in his usual state of health until patient came to my office today with shortness of breath, chest pain, and increase in heart rate with a rapid ventricular response of atrial fibrillation at 150 per minute. Patient was sent to the Cardiology office. 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 Has bilateral leg pain. No abdomen pain. No nausea or vomiting. No hematemesis. No melena. No hematuria. No cough. Patient has chronic joint pain. No back pain. PAST MEDICAL HISTORY: 1. Carcinoma of the prostate. 2. Hypertension. 3. DVT of both lower extremities. 4. Rheumatoid arthritis. 5. Congestive heart failure. 6. Chronic renal insufficiency with CKD. 7. Atrial fibrillation. PAST SURGICAL HISTORY: History of total left hip replacement. ALLERGIES: ALLERGY TO SULFA, CLINDAMYCIN. SOCIAL HISTORY: The patient is . Lives with his . HABITS: Denies smoking. Denies alcohol use. Denies illicit drug use. MEDICATIONS: Restarted. PHYSICAL EXAMINATION: GENERAL: This is a 78-year-old male, who is alert and oriented x3, in no gross distress. VITAL SIGNS: Temperature 98.2, pulse 102, respirations 16, blood pressure 116/98. HEENT: Head is atraumatic and normocephalic. Pupils bilaterally equal and reactive to light. Extraocular muscles are intact. NECK: Supple. No JVD. No carotid bruit. LUNGS: Clear to auscultation and percussion bilaterally. No added sounds. HEART: S1 and S2. Tachycardia. No S3. No S4. No murmur. ABDOMEN: Soft, nontender. No guarding. No rigidity. EXTREMITIES: Chronic mild edema. GLASS ARTIST: Grossly nonfocal. RADIOGRAPHIC DATA: Chest x-ray, possible pneumonia. EKG, atrial fibrillation with 140 per minute. LABORATORY DATA: White count 8.414, hemoglobin 8.8, hematocrit 29.8, and platelets 299. Sodium 132, potassium 3.4, BUN 33, creatinine 2.02, ASSESSMENT: 1. Atrial fibrillation with rapid ventricular response. 2. Congestive heart failure. 3. Chronic kidney disease. 4. Anemia. 5. Chronic deep venous thrombosis. 6. History of rheumatoid arthritis. 7. Chronic pain syndrome. 8. Pneumonia. 9. History of carcinoma of the prostate. PLAN: Admit patient to ICU. IV amiodarone, IV Rocephin 2 g daily, IV Zithromax 500 mg daily. Hematologic consult, Dr. Pérez management. Lab in the morning. Condition and prognosis were explained to the patient. MD KOREY Schaffer/SHIVA /[id number]
[2019-01-03 05:22] LABS: BASOPHILS # (AUTO) 0.1 (0.0-0.1); BASOPHILS % 0.7 % (0.0-1.0); EOSINOPHILS # (AUTO) 0.2 (0.0-0.4); EOSINOPHILS % 2.1 % (0.0-6.0); HEMATOCRIT 24.8 % (38.2-49.6); HEMOGLOBIN 7.5 g/dL (14.0-18.0); LYMPHOCYTES # (AUTO) 1.2 (1.0-3.2); LYMPHOCYTES % 16.5 % (18.0-39.1); MEAN CORPUSCULAR HEMOGLOBIN 24.3 pg (28-32); MEAN CORPUSCULAR HGB CONC 30.2 g/dL (31-35); MEAN CORPUSCULAR VOLUME 80.3 fL (81-99); MONOCYTES # (AUTO) 0.8 (0.2-0.8); MONOCYTES % 11.3 % (4.4-11.3); NEUTROPHILS # (AUTO) 4.8 (2.1-6.9); NEUTROPHILS % 69.1 % (38.7-80.0); PLATELET COUNT 250 x10e3/uL (140-360); RED BLOOD COUNT 3.09 x10e6/uL (4.3-5.7); RED CELL DISTRIBUTION WIDTH 15.2 % (11.7-14.4)
[2019-01-03 05:43] LABS: ANION GAP 9.7 mmol/L (8-16); CALCIUM 8.1 mg/dL (8.4-10.2); CREATININE, SERUM 2.06 mg/dL (0.72-1.25); POTASSIUM 3.7 mmol/L (3.5-5.1)
--- NOTE | 2019-01-03 09:15 | NUR ---
Dr Eaton in with patient. He orders to give the: eliquis, metoprolol, and start PO amiodarone, and continue the IV amiodarone until it completes. He advises to anticipate discharge this afternoon. Addendum: 01/04/19 at 0741 by Sarah Eastman RN Patient with systolic blood pressures in the 90's. Dr Mattie Emmanuel noted these numbers while visiting and instructed to give metoprolol and iv and po amiodarone with these BPs stating pt's blood pressure will be ok.
[2019-01-03] MEDS: FAMOTIDINE 20 MG/2 ML VIAL IV SCH ×2 (09:21→17:32)
[2019-01-03] MEDS: APIXABAN 5 MG TABLET PO SCH ×2 (09:22→17:17)
[2019-01-03] MEDS: AMIODARONE HCL 200 MG TAB PO SCH ×2 (09:24→21:17)
[2019-01-03] MEDS: MORPHINE SULFATE 30 MG TAB ER PO PRN (12:42)
--- NOTE | 2019-01-03 15:24 | NUR ---
Have called to notify Dr Braun of consult for pneumonia. Call taken by María.
--- NOTE | 2019-01-03 16:38 | NUR ---
Nutrition Intervention Note RD Recommendation(s) for Physician: - Rec Ensure clear TID with meals - Consider liberalization of diet due to poor intake - The patient meets criteria for unspecified SEVERE protein-calorie malnutrition Plan of Care: RD following, monitoring for tolerance and adequacy, ONS rec Nutrition reason for involvement: Nutrition Risk Trigger MST 2 RD Assessment 01/03 78yo M, who was admitted for Afib with RVR and CHF. Pt stated he has been eating <50% of meals for > 1 month prior to admission. Pt mentioned he is trying to eat >50% of his meals. Pt reported he had lost wt and used to weigh 135 lbs 6 months ago. Per chart, pt had consumed 25% of dinner on 01/02. Pt has weights ranging from 110 to 114 lbs in chart for this admission. If accurate, this would be a 16-19% wt loss in 6 months severe wt loss. No N/V/D/C reported and no chewing/swallowing issues. Performed NFPE, pt showed moderate severe signs of generalized muscle and fat depletion. Pt was interested in Ensure clear- will provide with meals. Will continue to monitor. Principal Problems/Diagnoses: afib with RVR PMH: afib, CHF, carcinoma of prostate, HTN, DVT in lower extremities, severe RA, chronic pain syndrome I/O: +467/-400 GI: flat, soft abdomen Skin: intact Labs: (01/03) Na 130, BUN, Creat 2.06, Ca 8.1 Meds: (01/03) azithromycin, metroprolol, famotidine Ht: 62 inches Wt: 110.37 lbs BMI: 20.2kg/m2 IBW: 118 lbs +/- 10% Malnutrition Evaluation (01/03) The patient meets criteria for unspecified SEVERE protein-calorie malnutrition Energy intake: <50% of estimated energy requirements for >1 month Weight loss: >10% in 6 months (Chronic) Fat loss: Moderate: apparent ribs Muscle loss: Moderate - severe: temporal depression, squaring of shoulder, depression line on the thigh Supporting Evidence: Fluid accumulation: chronic mild edema in extremities per chart Functional Status: unable to evaluate Nutrition Prescription (Diet Order): cardiac diet Estimated Nutritional Needs: Calories: 7275-9117 kcal (25-35 kcal/kg) Weight used : 110 lbs Protein: 50-75 g/day (1-1.5 g/kg) Weight used: 110 lbs Diet Adequacy: Not meeting calorie needs, Not meeting protein needs Tolerance: Tolerating PO Diet Education Needs Assessment: Diet education not indicated Nutrition Care Level: High Nutrition Diagnosis: Severe protein-calorie malnutrition related to chronic illness as evidenced by pt meeting <75% of energy needs for > 1 month, >10% wt loss in 6 months, and moderate-severe muscle and fat depletion Goal: Patient will meet 75-100% of estimated needs by follow up Progress: N/A Interventions: Commercial beverage, General healthful diet Monitoring/Evaluation: -Total energy intake, Total protein intake, Liquid supplement, Weight change Signed: Awilda Wills, MS, RD, LD
--- NOTE | 2019-01-03 16:47 | Diagnostic Imaging Report ---
Chest, 2 views, 01/03/2019. History: A. Fib. Comparison: 01/02/2019. Findings: The cardiomediastinal silhouette and pulmonary vasculature are within normal limits. There is no evidence of consolidation or pleural effusion. There is no visible retrocardiac opacity. Right subclavian Port-A-Cath and bilateral shoulder prostheses are unchanged. There are no acute osseous or soft tissue abnormalities. Impression: No acute cardiopulmonary abnormality. Signed by: Timmy Cabrera on 01/03/2019 4:44 PM
[2019-01-03] MEDS ORDERED: DEXAMETHASONE PHOS 10MG INJ 20 MG in SODIUM CHLORIDE 0.9% 50ML 50 ML IV ONE (17:00)
[2019-01-03] MEDS ORDERED: FAMOTIDINE INJ 20 MG in SODIUM CHLORIDE 0.9% 50ML 50 ML IV ONE (17:30)
[2019-01-03 17:44] LABS: ABG PCO2 38 mmHg (41-51); ABG PH 7.46 (7.31-7.41)
[2019-01-03 17:45] LABS: ABG HCO3 27 mmol/L (23-28); ABG PO2 161 mmHg (80-105)
[2019-01-03] MEDS ORDERED: DIPHENHYDRAMINE HCL INJ 25 MG in SODIUM CHLORIDE 0.9% 50ML 50 ML IV ONE (18:00)
[2019-01-03] MEDS ORDERED: IRON DEXTRAN INJ 50 MG in SODIUM CHLORIDE 0.9% 100 ML IV ONE (18:30)
--- NOTE | 2019-01-03 18:49 | NUR ---
Pt was premedicated and then infused dextran initial dose, which has ended now. No current complications noted.
[2019-01-03] MEDS ORDERED: IRON DEXTRAN INJ 500 MG in SODIUM CHLORIDE 0.9% 500ML 500 ML IV PRN (20:00)
[2019-01-03] MEDS: AZITHROMYCIN 500MG/NS 250 ML 250 ML IV SCH (20:59)
[2019-01-03] MEDS: CEFTRIAXONE SOD 2 GM/NS 100 ML 100 ML IV SCH (21:00)
[2019-01-03] MEDS ORDERED: HYDROMORPHONE 1MG/1ML INJ IV PRN (21:15)
[2019-01-03] MEDS ORDERED: HYDROMORPHONE 2MG/ML 2 MG/ML ML ONE (21:26)
[2019-01-03] MEDS: HYDROMORPHONE 2MG/ML 2 MG/ML ML IV PRN (21:26)
--- NOTE | 2019-01-03 23:53 | Consultation ---
DATE OF CONSULTATION: 01/03/2019 Pulmonary Consultation The patient of Dr. Madison Emmanuel, Dr. Neo Emmanuel, Dr. Pérez, Dr. Piper. HISTORY OF PRESENT ILLNESS: A charming 78-year-old gentleman admitted from doctor's office with shortness of breath, palpitations, and chest pain. Found to be in atrial fibrillation with rapid response. He has had atrial fibrillation before. PAST MEDICAL HISTORY: History of heart failure and DVT, carcinoma of the prostate treated in the past with radical cryo prostatectomy, radiation and chemotherapy, required a suprapubic tube at that time. History of severe rheumatoid arthritis, history of DVTs in the past. ALLERGIES: HE IS ALLERGIC TO SULFUR AND CLEOCIN. MEDICATIONS: Include Colace, folic acid, Lasix, methotrexate, metoprolol, prednisone 5 mg, and Carafate as well as MS Contin and Eliquis. PAST SURGICAL HISTORY: He has had recent surgery on the scalp for squamous cell carcinoma. SOCIAL HISTORY: Born in [place]. 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 He says he is losing weight approximately 40 pounds. He has been seen earlier today by Dr. Pérez. PHYSICAL EXAMINATION: GENERAL: A slight white male, anxious, dyspneic earlier, but comfortable now at rest. VITAL SIGNS: Temperature 97, pulse 82, blood pressure 100/74. HEAD: Normocephalic and atraumatic. NECK: Trachea midline. LUNGS: Bibasilar rales. HEART: Irregular rhythm. ABDOMEN: Nontender. EXTREMITIES: Nonedematous with rheumatoid changes. IMPRESSION: 1. Congestive heart failure. 2. Atrial fibrillation with rapid ventricular response. 3. Anemia. 4. Weight loss. 5. History of carcinoma of the prostate. PLAN: Support hemoglobin falling from 11.3 to 7.5. Continue anticoagulation as tolerated. The patient is a nonsmoker. We will request chest x-ray 2 views. Chest x-ray on the revealed a vague left lower lobe infiltrate. Requested 2-view x-ray. Carcinoma apparently was treated in 2006. There is no pathology report regarding prostate. Continue supplemental oxygen. Cannot completely exclude the possibility of a nonspecific interstitial pneumonitis, but plan therapy for congestive heart failure at this time and replacement of iron. Thank you for this kind referral. MD MYRNA Muhammad/SHIVA /[id number]
[2019-01-04] VITALS (23 sets, daily range): BP systolic 78–115; BP diastolic 53–100
[2019-01-04] MEDS: MORPHINE SULFATE 30 MG TAB ER PO PRN (01:35)
--- NOTE | 2019-01-04 02:04 | History and Physical ---
CHIEF COMPLAINT: Palpitation and weakness. HISTORY OF PRESENT ILLNESS: The patient is 78-year-old, whom I saw in clinic, presented with tachycardia. EKG showed atrial fibrillation with RVR, heart rates in the 140s to 150s and he was feeling weak, dizzy, short of breath. Echocardiogram revealed preserved left ventricular ejection fraction and no severe valvular abnormalities. No pericardial effusion. Given his symptoms and very high heart rate, decision was made to send the patient to the hospital for IV amiodarone and possible cardioversion. Overnight, his heart rate became well controlled now in the 80s, though he remains in atrial fibrillation. He feels a lot better and was converted to oral amiodarone. However, labs showed multiple abnormalities, which require further workup and possible pneumonia on chest x-ray, which requires treatment. The patient will remain in the hospital to address these issues. PAST MEDICAL HISTORY: 1. Prostate cancer. 2. Hypertension. 3. DVT of both lower extremities, on anticoagulation. 4. Rheumatoid arthritis. 5. Congestive heart failure. 6. Chronic renal insufficiency. 7. Atrial fibrillation. PAST SURGICAL HISTORY: Total hip replacement. ALLERGIES: ALLERGIC TO SULFA AND CLINDAMYCIN. SOCIAL HISTORY: Does not smoke, drink, or abuse drugs. He is , lives with his . FAMILY HISTORY: Noncontributory. OUTPATIENT MEDICATIONS: Reviewed. OBJECTIVE: VITAL SIGNS: Temperature afebrile, pulse 83, respiratory rate 14, blood pressure 100/78, saturating 100% on 2 L nasal cannula. GENERAL: Elderly man, thin, well-developed, no acute distress. CARDIOVASCULAR: Irregular rate and rhythm. No murmurs, rubs, or gallops. LUNGS: Decreased breath sounds bilaterally at the bases. ABDOMEN: Soft, nontender, nondistended. No masses. NEUROLOGIC AND PSYCHIATRIC: Alert and oriented to person, place, and time. Normal affect. INPATIENT MEDICATIONS: Reviewed. LABORATORY DATA: Reviewed. Notable for a hemoglobin of 7.5, down from hemoglobin of 8.8 yesterday. Sodium of 130, potassium of 3.7, creatinine of 2. Troponins negative. BNP 327. IMAGING DATA: Reviewed. Initial chest x-ray shows patchy retrocardiac opacity concerning for pneumonia, this has improved on a followup chest x-ray today. TELEMETRY DATA: Reviewed. It shows atrial fibrillation with rapid ventricular response, now better rate controlled with heart rates in 80s and 90s. ASSESSMENT: 1. Atrial fibrillation with rapid ventricular response, now rate controlled. 2. Anemia. 3. Chronic kidney disease. 4. Possible pneumonia. 5. Hyponatremia. PLAN: over the horizon targeting supervisor to oral amiodarone. Rate control is much better now. Continue metoprolol 25 mg b.i.d. Continue apixaban for now as there are no signs of overt GI bleeding. We will defer workup to the medical team. We will continue to follow. MD ROSS WarrenP/MODL /[id number]
[2019-01-04] MEDS: METOPROLOL TARTRATE 25 MG TAB PO SCH ×3 (03:00→15:00)
[2019-01-04 05:31] LABS: CALCIUM 8.1 mg/dL (8.4-10.2); CREATININE, SERUM 2.22 mg/dL (0.72-1.25)
[2019-01-04] MEDS: HYDROMORPHONE 2MG/ML 2 MG/ML ML IV PRN ×4 (05:44→20:00)
[2019-01-04 06:08] LABS: ANION GAP 11.7 mmol/L (8-16); POTASSIUM 4.7 mmol/L (3.5-5.1)
[2019-01-04 07:09] LABS: BASOPHILS % 0.1 % (0.0-1.0); EOSINOPHILS # (AUTO) 0.2 (0.0-0.4); EOSINOPHILS % 1.7 % (0.0-6.0); HEMATOCRIT 28.4 % (38.2-49.6); HEMOGLOBIN 8.4 g/dL (14.0-18.0); LYMPHOCYTES # (AUTO) 0.8 (1.0-3.2); LYMPHOCYTES % 8.5 % (18.0-39.1); MEAN CORPUSCULAR HEMOGLOBIN 23.9 pg (28-32); MEAN CORPUSCULAR HGB CONC 29.6 g/dL (31-35); MEAN CORPUSCULAR VOLUME 80.9 fL (81-99); MONOCYTES # (AUTO) 0.2 (0.2-0.8); MONOCYTES % 2.5 % (4.4-11.3); NEUTROPHILS # (AUTO) 8.2 (2.1-6.9); NEUTROPHILS % 86.8 % (38.7-80.0); PLATELET COUNT 299 x10e3/uL (140-360); RED BLOOD COUNT 3.51 x10e6/uL (4.3-5.7); RED CELL DISTRIBUTION WIDTH 15.3 % (11.7-14.4)
--- NOTE | 2019-01-04 07:47 | Diagnostic Imaging Report ---
EXAMINATION: CHEST SINGLE (PORTABLE) INDICATION: Short of breath COMPARISON: Chest radiograph 01/03/2019 FINDINGS: AP view TUBES and LINES: Right chest wall port with right subclavian central venous catheter, tip in the superior cavoatrial junction.. LUNGS: Lungs are adequately inflated. Lungs are clear. There is no evidence of pneumonia or pulmonary edema. PLEURA: No pleural effusion or pneumothorax. HEART AND MEDIASTINUM: Cardiac size is mildly enlarged. BONES AND SOFT TISSUES: No acute osseous lesion. Soft tissues are unremarkable. The partially visualized components of the bilateral shoulder arthroplasty hardware appear intact. Leftward convex curvature of the lower thoracolumbar spine. UPPER ABDOMEN: No free air under the diaphragm. IMPRESSION: No acute thoracic radiographic abnormality. Mild cardiomegaly. Signed by: Maverick Dorsey DO on 01/04/2019 7:43 AM
[2019-01-04] MEDS: AMIODARONE HCL 200 MG TAB PO SCH ×2 (09:01→22:08)
[2019-01-04] MEDS: APIXABAN 5 MG TABLET PO SCH ×2 (09:01→18:44)
[2019-01-04] MEDS: FAMOTIDINE 20 MG/2 ML VIAL IV SCH ×2 (09:01→22:08)
--- NOTE | 2019-01-04 10:00 | NUR ---
ok per Dr. Cat Emmanuel for pt to go to floor if ok with cardiology. waiting for Dr. Hayes to round for orders. will continue to monitor
--- NOTE | 2019-01-04 19:00 | NUR ---
Report received. Assumed care. Assessment done. See interventions. Scalp incision with sutures intact. IV saline locked. No c/o verbalized.
--- NOTE | 2019-01-04 20:00 | NUR ---
Medicated for c/o pain. Visitors at bedside.
[2019-01-04] MEDS: AZITHROMYCIN 500MG/NS 250 ML 250 ML IV SCH (20:05)
[2019-01-04] MEDS ORDERED: SODIUM CHLORIDE 0.9% 250ML 250 ML ONE (21:51)
[2019-01-04] MEDS: CEFTRIAXONE SOD 2 GM/NS 100 ML 100 ML IV SCH (22:08)
--- NOTE | 2019-01-04 22:17 | NUR ---
IV infiltrated. DCd with catheter intact. IV restarted to LAC with 20 ga x 1 stick.
[2019-01-05] VITALS (25 sets, daily range): BP systolic 93–135; BP diastolic 72–100
--- NOTE | 2019-01-05 | NUR ---
Medicated for c/o pain.
[2019-01-05] MEDS: HYDROMORPHONE 2MG/ML 2 MG/ML ML IV PRN ×6 (00:07→23:05)
--- NOTE | 2019-01-05 00:49 | Progress Note ---
DATE: 01/04/2019 Cardiology Progress Note SUBJECTIVE: The patient denies chest pain or shortness of breath. OBJECTIVE: VITAL SIGNS: Temperature 98.6 degrees, pulse 87, respiratory rate 15, blood pressure 97/83, and oxygen saturation 100% on room air. GENERAL: Elderly man, in no acute distress, awake and alert. LUNGS: Decreased breath sounds at the bases. CARDIOVASCULAR: Irregularly irregular, tachycardic. No murmur. Normal S1 and S2. ABDOMEN: Soft, nontender. EXTREMITIES: No edema. CARDIAC MEDICATIONS: Amiodarone 200 mg p.o. q.12 hours, apixaban 5 mg p.o. b.i.d. LABORATORY DATA: WBC 9.43, hemoglobin 8.4, hematocrit 28.4, and platelets 299. Sodium 136, potassium 4.7, chloride 104, CO2 of 25, BUN 38, creatinine 2.22. TELEMETRY: Atrial fibrillation with rapid ventricular response. IMPRESSION: 1. Atrial fibrillation with rapid ventricular response. 2. Chronic kidney disease. 3. Anemia. 4. Hypotension. 5. Hyponatremia, resolved. RECOMMENDATIONS: Continue amiodarone. Continue Eliquis for CVA prophylaxis. The patient has not been able to tolerate metoprolol due to hypotension. If heart rate remains borderline, attempt IV digoxin. Echocardiogram was recently performed at the office with preserved LVEF. There were no severe valvular abnormalities and no pericardial effusion. Continue monitoring the patient closely on telemetry. If heart rate does not improve, we will consider MICHAEL cardioversion on Sunday. Thank you for this consult. We will continue to follow. Maria De Jesus Hayes MD ABS/MODL /[id number] SID
--- NOTE | 2019-01-05 04:40 | NUR ---
Medicated for c/o pain.
--- NOTE | 2019-01-05 04:55 | NUR ---
O2 placed on at 2L per patient request.
[2019-01-05 05:43] LABS: BASOPHILS # (AUTO) 0.1 (0.0-0.1); BASOPHILS % 0.5 % (0.0-1.0); EOSINOPHILS # (AUTO) 0.1 (0.0-0.4); HEMATOCRIT 28.5 % (38.2-49.6); HEMOGLOBIN 8.5 g/dL (14.0-18.0); LYMPHOCYTES # (AUTO) 1.8 (1.0-3.2); LYMPHOCYTES % 16.9 % (18.0-39.1); MEAN CORPUSCULAR HEMOGLOBIN 23.9 pg (28-32); MEAN CORPUSCULAR HGB CONC 29.8 g/dL (31-35); MEAN CORPUSCULAR VOLUME 80.1 fL (81-99); MONOCYTES # (AUTO) 0.9 (0.2-0.8); MONOCYTES % 8.6 % (4.4-11.3); NEUTROPHILS # (AUTO) 7.8 (2.1-6.9); NEUTROPHILS % 72.6 % (38.7-80.0); PLATELET COUNT 333 x10e3/uL (140-360); RED BLOOD COUNT 3.56 x10e6/uL (4.3-5.7); RED CELL DISTRIBUTION WIDTH 15.3 % (11.7-14.4)
[2019-01-05 06:07] LABS: ALBUMIN 2.7 g/dL (3.5-5.0); ALBUMIN/GLOBULIN RATIO 1.4 (0.8-2.0); ANION GAP 13.2 mmol/L (8-16); CALCIUM 8.3 mg/dL (8.4-10.2); CREATININE, SERUM 1.88 mg/dL (0.72-1.25); POTASSIUM 4.2 mmol/L (3.5-5.1)
[2019-01-05] MEDS: AMIODARONE HCL 200 MG TAB PO SCH ×2 (08:24→21:25)
[2019-01-05] MEDS: FAMOTIDINE 20 MG/2 ML VIAL IV SCH ×2 (08:24→21:25)
[2019-01-05] MEDS: APIXABAN 5 MG TABLET PO SCH ×2 (08:24→18:24)
--- NOTE | 2019-01-05 19:00 | NUR ---
Report received. Assumed care. Assessment done. See interventions. O2 per NC @ 2L. IV saline locked.
--- NOTE | 2019-01-05 19:05 | NUR ---
Medicated for c/o pain.
[2019-01-05] MEDS: AZITHROMYCIN 500MG/NS 250 ML 250 ML IV SCH (20:11)
[2019-01-05] MEDS ORDERED: DIGOXIN INJ 0.25 MG/ML 2 ML AMP IV ONE (21:00)
[2019-01-05] MEDS: CEFTRIAXONE SOD 2 GM/NS 100 ML 100 ML IV SCH (21:25)
--- NOTE | 2019-01-05 21:45 | NUR ---
Consent obtained for MICHAEL cardioversion for AM.
--- NOTE | 2019-01-05 23:00 | NUR ---
Medicated for c/o pain.
[2019-01-06] VITALS (22 sets, daily range): BP systolic 98–148; BP diastolic 67–98
--- NOTE | 2019-01-06 01:03 | Progress Note ---
DATE: 01/05/2019 Cardiology Progress Note SUBJECTIVE: The patient reports his shortness of breath remains, but has improved. He did report an episode of chest pain last night 4/10 in severity, lasting seconds at a time, which he described as a pulling sensation. OBJECTIVE: VITAL SIGNS: Temperature 97.9 degrees, pulse 120, respiratory rate 21, blood pressure 135/85, and oxygen saturation 95% on room air. GENERAL: Elderly man, in no acute distress, awake, and alert. LUNGS: Decreased breath sounds at the bases. CARDIOVASCULAR: Irregularly irregular, tachycardic. No murmur. Normal S1 and S2. ABDOMEN: Soft, nontender. EXTREMITIES: 1+ edema. CARDIAC MEDICATIONS: Apixaban 5 mg p.o. b.i.d. and amiodarone 200 mg p.o. q.12 hours. LABORATORY DATA: WBC 10.69, hemoglobin 8.5, hematocrit 28.5, and platelets 333. Sodium 137, potassium 4.2, chloride 103, CO2 of 25, BUN 33, and creatinine 1.88. TELEMETRY: Atrial fibrillation with rapid ventricular response. IMPRESSION: 1. Atrial fibrillation with rapid ventricular response. 2. Chronic kidney disease. 3. Anemia. 4. Hypertension. 5. Hyponatremia, resolved. RECOMMENDATIONS: 1. Continue amiodarone. Continue Eliquis for CVA prophylaxis. The patient has not been able to tolerate beta blockade to achieve rate control due to episodes of hypotension. We will give dose of digoxin. Due to inability to achieve rate control, plan for MICHAEL cardioversion tomorrow. N.p.o. after midnight. 2. Monitor the patient closely on telemetry. Echocardiogram was performed at the office with preserved LVEF without severe valvular abnormalities and no pericardial effusion. Thank you for this consult. We will continue to follow. Maria De Jesus Hayes MD ABS/MODL /[id number]
--- NOTE | 2019-01-06 03:45 | NUR ---
Complete bed bath given with hibiclens. Bed linens changed.
[2019-01-06] MEDS: HYDROMORPHONE 2MG/ML 2 MG/ML ML IV PRN ×5 (07:00→22:36)
[2019-01-06] MEDS: AMIODARONE HCL 200 MG TAB PO SCH ×2 (08:00→20:08)
[2019-01-06] MEDS: FAMOTIDINE 20 MG/2 ML VIAL IV SCH ×2 (08:00→20:06)
[2019-01-06] MEDS: APIXABAN 5 MG TABLET PO SCH ×2 (08:00→16:13)
[2019-01-06] MEDS ORDERED: BENZOCAINE 20% SPR 60 ML CAN ONE (12:25)
[2019-01-06] MEDS ORDERED: SODIUM CHLORIDE 0.9% 1000ML 1,000 ML ONE (12:25)
--- NOTE | 2019-01-06 12:36 | NUR ---
report off to Andrew Shore RN of above facts. pt currently awaiting meal tray, right radial remains with + neurovascular function w/o gross deficits. Friend at bedside. -cgf Addendum: 01/06/19 at 1237 by Rich Vora RN strike above note - incorrect patient - cgf
--- NOTE | 2019-01-06 13:27 | Progress Note ---
DATE: 01/06/2019 Cardiology Progress Note SUBJECTIVE: The patient is feeling better. Reports fatigue. Denies any chest pain or shortness of breath. OBJECTIVE: VITAL SIGNS: Temperature is 98, heart rate ranging from 101 to 123, respirations are 20, blood pressure is 108/81, and oxygen saturation 98% on room air. GENERAL: He is an elderly man, lying comfortably in bed, in no apparent distress. CARDIOVASCULAR: Irregularly irregular, tachycardic. No murmurs. LUNGS: Clear to auscultation. ABDOMEN: Soft, nontender, and nondistended. EXTREMITIES: No edema. CARDIOVASCULAR MEDICATIONS: Reviewed. LABORATORY DATA: Reviewed. Hemoglobin 8.5, creatinine 1.88. TELEMETRY: Monitoring revealed atrial fibrillation with right ventricular response. IMPRESSION: 1. Atrial fibrillation with rapid ventricular response. 2. Chronic kidney disease, improved. 3. Anemia. 4. Hypertension. RECOMMENDATIONS: Continue current cardiovascular medications consisting of amiodarone and Eliquis. The patient was not able to tolerate beta-blockers due to episodes of hypotension. He has received intermittent doses of digoxin. Continue to monitor electrolytes and normalize levels. We will plan for MICHAEL cardioversion today. DO DEONTE Nguyen/SHIVA /[id number]
--- NOTE | 2019-01-06 14:12 | Diagnostic Imaging Report ---
EXAM: CT Chest WITHOUT intravenous contrast 01/06/2019 8:57 AM INDICATION: COMPARISON: Atrial fibrillation, hypoxemia TECHNIQUE: Chest was scanned utilizing a multidetector helical scanner from the lung apex through the level of the adrenal glands without administration of IV contrast. Coronal and sagittal reformations were obtained. Routine protocol was performed. IV CONTRAST: None RADIATION DOSE: Total DLP: 442.9 mGy*cm. Dose modulation, iterative reconstruction, and/or weight based adjustment of the mA/kV was utilized to reduce the radiation dose to as low as reasonably achievable. COMPLICATIONS: None FINDINGS: LINES/ TUBES: Right subclavian chest port terminates in the superior vena cava. LUNGS AND AIRWAYS: Increased AP diameter of the chest. The central airways are patent. No focal consolidation. Mild lower lobe predominant smooth interlobular septal thickening compatible with mild interstitial edema. Mild lingular and bilateral lower lobe bronchiectasis. Bibasilar dependent subsegmental atelectasis. PLEURA: Small left pleural effusion. No pneumothorax. HEART AND MEDIASTINUM: The thyroid gland is not well visualized due to streak artifact related to bilateral total shoulder replacements. No definite supraclavicular, axillary, mediastinal, or hilar lymphadenopathy. Multichamber cardiomegaly. Diffuse atherosclerotic calcifications involve the coronary arteries and aorta. No pericardial effusion. UPPER ABDOMEN: Limited noncontrast views of the upper abdomen demonstrate no focal abnormality of the partially visualized liver, spleen, left kidney, adrenals, or pancreas. The wrangell right kidney appears atrophic. BONES: Status post right and left shoulder arthroplasty. Substantial degenerative changes and levoconvex curvature of the thoracolumbar spine. Diffuse osteopenia. No acute osseous injury. SOFT TISSUES: Diffuse muscle atrophy and mild diffuse subcutaneous soft tissue edema. IMPRESSION: Multichamber cardiomegaly and mild interstitial pulmonary edema. Small left pleural effusion. Mild lingular and bilateral lower lobe bronchiectasis. Bibasilar dependent subsegmental atelectasis. Diffuse atherosclerotic calcifications including of the coronary arteries. Atrophic wrangell right kidney. Signed by: Soumya De La Torre MD on 01/06/2019 2:09 PM
[2019-01-06] MEDS ORDERED: PROPOFOL IV EMULSION 10 MG/ML 20 ML VIAL ONE (14:50)
[2019-01-06] MEDS ORDERED: LIDOCAINE HCL 2% LOCAL INJ 5 ML SDV VIAL INJ ONE (14:50)
--- NOTE | 2019-01-06 16:37 | NUR ---
Patient NPO this morning for procedure. Patient ambulated in hallway with physical therapy on room air. During ambulation patient desaturated to 80%. Orders placed for home O2 evaluation. Dr. Norton ordered CT of chest WO contrast. Chest CT completed. Patient went for MICHAEL with cardioversion this afternoon. EKG ordered and completed, pt is running NSR with PVC's. Will continue to monitor the patient. Addendum: 01/06/19 at 1839 by Aneglina Dykes RN 1800- Dr. Metzger rounded on pt and informed of patients poor venous access. accessed R portacath and ordered heparin flush.
[2019-01-06] MEDS ORDERED: HEPARIN SOD (PORCINE) 1000 UNIT/ML SDV ONE (17:49)
[2019-01-06] MEDS ORDERED: HEPARIN SOD (PORCINE) 1000 UNIT/ML 10ML MDV IV ONE (18:15)
[2019-01-06] MEDS ORDERED: HEPARIN SOD (PORCINE) 1000 UNIT/ML SDV INJ ONE (18:30)
[2019-01-06] MEDS: MORPHINE SULFATE 30 MG TAB ER PO PRN (19:44)
[2019-01-06] MEDS: AZITHROMYCIN 500MG/NS 250 ML 250 ML IV SCH (20:06)
[2019-01-06] MEDS: CEFTRIAXONE SOD 2 GM/NS 100 ML 100 ML IV SCH (21:39)
[2019-01-07] VITALS (13 sets, daily range): BP systolic 97–146; BP diastolic 56–85
[2019-01-07] MEDS: HYDROMORPHONE 2MG/ML 2 MG/ML ML IV PRN ×5 (02:57→20:00)
[2019-01-07] MEDS ORDERED: ONDANSETRON HCL INJ 2MG/ML 2ML 2 MG/ML VIAL IV PRN (07:15)
[2019-01-07] MEDS ORDERED: ONDANSETRON HCL INJ 2MG/ML 2ML 2 MG/ML VIAL IV ONE (07:30)
[2019-01-07] MEDS: FAMOTIDINE 20 MG/2 ML VIAL IV SCH ×2 (08:09→20:27)
[2019-01-07] MEDS: APIXABAN 5 MG TABLET PO SCH ×2 (08:09→17:07)
[2019-01-07] MEDS: AMIODARONE HCL 200 MG TAB PO SCH ×2 (08:09→20:27)
--- NOTE | 2019-01-07 13:20 | NUR ---
Nutrition Intervention Note RD Recommendation(s) for Physician: - Continue ONS, recommend Ensure Compact TID. - Consider liberalization of diet due to poor intake -Consider appetite stimulant per MD if medically feasible. - The patient meets criteria for unspecified SEVERE protein-calorie malnutrition Plan of Care: RD following, monitoring for tolerance and adequacy, ONS rec Nutrition reason for involvement: follow up RD Assessment 01/07: Follow up: Pt was seen resting in bed in the ICU. He reported that his appetite has improved but he is still forcing himself to eat. Pt reported that he has been receiving the Ensure Enlive and he likes it. It is noted that there is no order for the supplement but the pt reports he is receiving it. Spoke about pt during rounds, pt is being downgraded to the floors. Pt reported he did have some N/V this morning but denied C/D/chewing or swallowing issues at this time. Pt has been consuming 50% of his meals per meal assessment. Pt is on nasal cannula. Will continue to monitor. 01/03 78yo M, who was admitted for Afib with RVR and CHF. Pt stated he has been eating <50% of meals for > 1 month prior to admission. Pt mentioned he is trying to eat >50% of his meals. Pt reported he had lost wt and used to weigh 135 lbs 6 months ago. Per chart, pt had consumed 25% of dinner on 01/02. Pt has weights ranging from 110 to 114 lbs in chart for this admission. If accurate, this would be a 16-19% wt loss in 6 months severe wt loss. No N/V/D/C reported and no chewing/swallowing issues. Performed NFPE, pt showed moderate severe signs of generalized muscle and fat depletion. Pt was interested in Ensure clear- will provide with meals. Will continue to monitor. Principal Problems/Diagnoses: afib with RVR PMH: afib, CHF, carcinoma of prostate, HTN, DVT in lower extremities, severe RA, chronic pain syndrome I/O: --- GI: flat, soft abdomen Skin: intact Labs: (01/07): BUN 33, Creat 1.88, Ca 8.3, tbili 0.1 (01/03) Na 130, BUN, Creat 2.06, Ca 8.1 Meds: abx, eliquis, pepcid, cordarone, metroprolol, famotidine Ht: 62 inches Wt: 122 lbs BMI: 22.3kg/m2 IBW: 118 lbs +/- 10% Malnutrition Evaluation (01/03) The patient meets criteria for unspecified SEVERE protein-calorie malnutrition Energy intake: <50% of estimated energy requirements for >1 month Weight loss: >10% in 6 months (Chronic) Fat loss: Moderate: apparent ribs Muscle loss: Moderate - severe: temporal depression, squaring of shoulder, depression line on the thigh Supporting Evidence: Fluid accumulation: chronic mild edema in extremities per chart Functional Status: unable to evaluate Nutrition Prescription (Diet Order): cardiac diet Estimated Nutritional Needs: Calories: 5089-1803 kcal (25-35 kcal/kg) Weight used : 55 kg CBW Protein: 55-82g/day (1-1.5 g/kg) Weight used: 55 kg CBW Diet Adequacy: Not meeting calorie needs, Not meeting protein needs Tolerance: Tolerating PO Diet Education Needs Assessment: Diet education not indicated Nutrition Care Level:high Nutrition Diagnosis: Severe protein-calorie malnutrition related to chronic illness as evidenced by pt meeting <75% of energy needs for > 1 month, >10% wt loss in 6 months, and moderate-severe muscle and fat depletion Goal: Patient will meet 75-100% of estimated needs by follow up Progress: progressing Interventions: Commercial beverage, General healthful diet, medication prescription Monitoring/Evaluation: -Total energy intake, Total protein intake, Liquid supplement, Weight change, medication prescription Signed: Scarlet Youngblood RD, LD
--- NOTE | 2019-01-07 14:13 | NUR ---
Patient has orders to transfer to medical surgical floor with telemetry. Report called and pt transferred to room 102, no s/s of distress noted.
--- NOTE | 2019-01-07 19:18 | NUR ---
Report given to oncoming nurse. Pt stable.
--- NOTE | 2019-01-07 19:26 | Progress Note ---
DATE: 01/07/2019 Cardiology Progress Note SUBJECTIVE: The patient underwent MICHAEL-guided cardioversion. Feeling better. Denies any palpitations. OBJECTIVE: VITAL SIGNS: Temperature is 98.5, heart rate is 63, respirations are 13, blood pressure is 142/85, and ox saturation 99% on 2 liters nasal cannula. GENERAL: He is an elderly male, lying comfortably in bed. CARDIOVASCULAR: Regular rate and rhythm with ectopy. LUNGS: Diminished breath sounds at bases. ABDOMEN: Soft, nontender, and nondistended. EXTREMITIES: Trace edema. CARDIOVASCULAR MEDICATIONS: Reviewed. LABORATORY DATA: Creatinine 1.88. TELEMETRY: Monitoring revealed normal sinus rhythm with premature ventricular complexes and ventricular couplets. IMPRESSION: 1. Atrial fibrillation, status post direct current cardioversion. 2. Chronic kidney disease. 3. Anemia. 4. Hypertension. RECOMMENDATIONS: The patient underwent holiness of normal sinus rhythm with MICHAEL-guided cardioversion. He was not able to tolerate beta blockers in the past due to hypotension. Continue amiodarone and Eliquis. Brad Tirado DO BM/MODL /[id number]
--- NOTE | 2019-01-07 20:05 | NUR ---
HR RECHECKED AND REVEALED 76 B/MIN.
[2019-01-07] MEDS ORDERED: SODIUM CHLORIDE 0.9% 250ML 250 ML ONE (20:12)
[2019-01-07] MEDS: AZITHROMYCIN 500MG/NS 250 ML 250 ML IV SCH (20:27)
[2019-01-07] MEDS: CEFTRIAXONE SOD 2 GM/NS 100 ML 100 ML IV SCH (21:30)
[2019-01-08] VITALS (8 sets, daily range): BP systolic 126–161; BP diastolic 59–78
[2019-01-08] MEDS: HYDROMORPHONE 2MG/ML 2 MG/ML ML IV PRN ×6 (04:05→21:25)
[2019-01-08] MEDS: APIXABAN 5 MG TABLET PO SCH ×2 (08:29→17:00)
[2019-01-08] MEDS: AMIODARONE HCL 200 MG TAB PO SCH ×2 (08:29→21:25)
[2019-01-08] MEDS: FAMOTIDINE 20 MG/2 ML VIAL IV SCH ×2 (08:29→21:25)
[2019-01-08] MEDS ORDERED: HEPARIN SOD (PORCINE) 1000 UNIT/ML 10ML MDV IV ONE (09:45)
--- NOTE | 2019-01-08 10:01 | NUR ---
removed marck cath access as ordered
[2019-01-08] MEDS ORDERED: HEPARIN SOD (PORCINE) 1000 UNIT/ML SDV IV ONE (10:30)
[2019-01-08] MEDS ORDERED: AMIODARONE HCL200 MG PO (10:54)
--- NOTE | 2019-01-08 15:30 | Consultation ---
DATE OF CONSULTATION: 01/03/[address] Neo Emmanuel. HISTORY OF PRESENT ILLNESS: Froylan Sandra is a 78-year-old white male, who is known to me for more than 10 to 15 years. The patient has been treated by pa for cancer of the prostate, sarcoma of the scrotum as well as colon cancer. The patient has remained in complete remission. The patient is also known to have rheumatoid arthritis, iron deficiency anemia, anemia of chronic disease, for which he does get IV Infed. SOCIAL HISTORY: Noncontributory. FAMILY HISTORY: Noncontributory. ALLERGIES: REPORTED NONE. MEDICATIONS: At this time: 1. Amiodarone. 2. Ceftriaxone. 3. Zithromax. 4. Metoprolol. 5. Pepcid. 6. Morphine. REVIEW OF SYSTEMS: HEENT: Normal. CARDIAC: Atrial fibrillation. 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 : History of cancer of the prostate, history of sarcoma of the scrotum. GI: History of cancer of the colon. PHYSICAL EXAMINATION: GENERAL: A rather thin built male, very anemic. NECK: No palpable adenopathy. HEART: Irregularly irregular. LUNGS: Clear. ABDOMEN: Soft. RECTAL: Deferred. CENTRAL NERVOUS SYSTEM: Normal. EXTREMITIES: Shows swan neck deformity. LABORATORY DATA: Lab shows a sodium of 130, potassium 3.7, chloride is 96, CO2 28, BUN 31, creatinine 2.06, and glucose 100. Hemoglobin of 7.5, hematocrit 24.8, white count 7100, and platelets 250,000. Indices are suggestive of iron deficiency. Bilirubin 0.6, SGOT 20, SGPT 22, and alkaline phosphatase 99. The patient's indices show an MCV of 80.8, however, the MCHC is very low at 29.5. IMPRESSION: 1. Iron deficiency anemia. 2. Atrial fibrillation. 3. Cancer of the prostate, in complete remission. 4. Hypertension. 5. History of deep venous thrombosis of the legs. 6. Rheumatoid arthritis. 7. Sarcoma of the scrotum, in complete remission. 8. Chronic renal failure. 9. Hyponatremia of 130. 10. Hypokalemia of 3.4. 11. Hypoproteinemia. 12. Hypoalbuminemia of 2.7. 13. History of cancer of colon resected. PLAN, COMMENTS, AND SUGGESTIONS: I will confine myself to Hematology. I will give him Infed during this hospitalization. MD MING Jain/SHIVA /[id number]
--- NOTE | 2019-01-08 18:30 | Progress Note ---
DATE: 01/08/2019 Cardiology Progress Note SUBJECTIVE: The patient found sleeping comfortably. Denies any chest pain, shortness of breath, or palpitations. OBJECTIVE: VITAL SIGNS: Temperature is 98.1, heart rate is 63, respirations 17, blood pressure is 127/69, and oxygen saturation is 100% on 2 L nasal cannula. GENERAL: He is a well-appearing elderly man, lying comfortably in bed. CARDIOVASCULAR: Regular rate and rhythm. LUNGS: Clear to auscultation. ABDOMEN: Soft, nontender, and nondistended. EXTREMITIES: No edema. CARDIOVASCULAR MEDICATIONS: Reviewed. LABORATORY DATA: Reviewed. TELEMETRY: Monitoring revealed normal sinus rhythm. IMPRESSION: 1. Paroxysmal atrial fibrillation, status post cardioversion. 2. Chronic kidney disease. 3. Anemia. 4. Hypertension. RECOMMENDATIONS: The patient underwent MICHAEL guided cardioversion for samaritan of normal sinus rhythm. Continue current cardiovascular medications including anticoagulation and amiodarone. Brad Tirado DO BM/MODL /[id number]
--- NOTE | 2019-01-08 19:36 | NUR ---
WALKING ROUNDS PERFORMED, RECEIVED PT LAYING SEMI FOWLERS IN BED, AAOX3, RR EVEN AND NON-LABORED, ON ROOM AIR. NO S/SX OF DISTRESS NOTED. INCISION TO ANTERIOR HEAD NOTED TO BE INTACT, SUTURES INTACT. LEFT PT LAYING SEMI FOWLERS IN BED, BED IN LOW LOCKED POSITION, SIDE RAILS UPX2, CALL LIGHT AND PHONE WITHIN REACH.
--- NOTE | 2019-01-08 19:45 | NUR ---
Report given to oncoming nurse of patient's status. Resting in bed. No s/s of acute distress noted.
[2019-01-08] MEDS: AZITHROMYCIN 500MG/NS 250 ML 250 ML IV SCH (21:25)
[2019-01-08] MEDS: CEFTRIAXONE SOD 2 GM/NS 100 ML 100 ML IV SCH (21:55)
[2019-01-09 00:10] VITALS: BP 112/69
[2019-01-09] MEDS: HYDROMORPHONE 2MG/ML 2 MG/ML ML IV PRN ×4 (01:31→14:15)
[2019-01-09 05:23] VITALS: BP 125/65
[2019-01-09 05:41] LABS: BASOPHILS # (AUTO) 0.1 (0.0-0.1); BASOPHILS % 0.4 % (0.0-1.0); EOSINOPHILS # (AUTO) 0.3 (0.0-0.4); EOSINOPHILS % 2.7 % (0.0-6.0); HEMATOCRIT 29.7 % (38.2-49.6); HEMOGLOBIN 8.8 g/dL (14.0-18.0); LYMPHOCYTES # (AUTO) 1.4 (1.0-3.2); LYMPHOCYTES % 12.7 % (18.0-39.1); MEAN CORPUSCULAR HEMOGLOBIN 24.6 pg (28-32); MEAN CORPUSCULAR HGB CONC 29.6 g/dL (31-35); MEAN CORPUSCULAR VOLUME 83.2 fL (81-99); MONOCYTES # (AUTO) 0.8 (0.2-0.8); MONOCYTES % 7.4 % (4.4-11.3); NEUTROPHILS # (AUTO) 8.6 (2.1-6.9); NEUTROPHILS % 75.6 % (38.7-80.0); PLATELET COUNT 220 x10e3/uL (140-360); RED BLOOD COUNT 3.57 x10e6/uL (4.3-5.7); RED CELL DISTRIBUTION WIDTH 17.2 % (11.7-14.4)
[2019-01-09 05:58] LABS: ANION GAP 9.9 mmol/L (8-16); CALCIUM 8.3 mg/dL (8.4-10.2); CREATININE, SERUM 1.57 mg/dL (0.72-1.25); POTASSIUM 4.9 mmol/L (3.5-5.1)
[2019-01-09 06:30] LABS: EOSINOPHILS % (MANUAL) 2 % (0-7); LYMPHOCYTES % (MANUAL) 13 % (19-48); MONOCYTES % (MANUAL) 7 % (3.4-9.0); NEUTROPHILS % (MANUAL) 78 % (40-74); PLATELET ESTIMATE ADEQUATE; RBC MORPHOLOGY COMMENT NORMAL
[2019-01-09 08:00] VITALS: BP 156/77
[2019-01-09 08:34] VITALS: BP 156/77
[2019-01-09] MEDS: AMIODARONE HCL 200 MG TAB PO SCH (09:50)
[2019-01-09] MEDS: APIXABAN 5 MG TABLET PO SCH (09:50)
[2019-01-09] MEDS: FAMOTIDINE 20 MG/2 ML VIAL IV SCH (09:50)
[2019-01-09] MEDS ORDERED: metoprolol PO (12:53)
[2019-01-09] MEDS ORDERED: ceftin PO (12:54)
[2019-01-09 12:57] VITALS: BP 133/69
--- NOTE | 2019-01-09 14:30 | NUR ---
Left wrist IV discontinued. No signs of infiltration noted. 2x2 gauze and coban placed. Taken via wheelchair by PCT to personal car. Accompanied by . AAOX4 to time, person, place, situation. Respirations even and unlabored. Discharge instructions, rx, and all personal belongings taken with patient.
--- NOTE | 2019-01-09 14:58 | NUR ---
PATIENT ADDRESS WHERE SERVICE WILL BE RECEIVED: [address] , [facility] [address] PATIENT CONTACT NUMBER: [phone] NAME OF HOME HEALTH COMPANY: [id number] TELEPHONE NUMBER AND FAX NUMBER OF COMPANY: [phone], SERVICES TO RECEIVE: SkILL NURSE EVAL AND TREAT, PT/OT EVAL AND TREAT ANTICIPATED DATE SERVICES WILL BEGIN : Jan EXPLAINED HOME HEALTH CARE AND CHOICE TO PATIENT. PATIENT SIGNED CHOICE LETTER AND I PLACED IN CHART IMM EXPLAINED TO PT, SIGNED BY PATIENT, PLACED ON CHART BOTH COPIES PLACED IN CARE TRANSITIONS FOLDER RN CM CARD GIVEN FOR QUESTIONS OR CONCERNS
== END 2019-01-09 14:30 | disposition home health service (06) | DRG 193 ==
LOC: IMCU 15:34 → ICU 15:44 → MED/SURG 01-07 13:36
PROVIDERS: ADMIT Internal Medicine; ATTEND Internal Medicine
DX: J18.9 Pneumonia, unspecified organism (principal); J96.01 Acute respiratory failure with hypoxia; I82.503 Chronic embolism and thrombosis of unspecified deep veins of lower extremity, bilateral; E87.1 Hypo-osmolality and hyponatremia; I13.0 Hypertensive heart and chronic kidney disease with heart failure and stage 1 through stage 4 chronic kidney disease, or unspecified chronic kidney disease; I50.42 Chronic combined systolic (congestive) and diastolic (congestive) heart failure; Z79.01 Long term (current) use of anticoagulants; M06.9 Rheumatoid arthritis, unspecified; I48.91 Unspecified atrial fibrillation; D50.9 Iron deficiency anemia, unspecified; E77.8 Other disorders of glycoprotein metabolism; G89.4 Chronic pain syndrome; N18.9 Chronic kidney disease, unspecified
CPT/HCPCS: 36415; 36600; 71045; 71046; 71250; 80048; 80053; 82805; 83735; 83880; 84484; 85025; 93005; 93312; 93320; 93325; 97139; J0456; J0696; J1100; J1160; J1200; J1644; J1750; J2001; J2405; J7030; J7040; J7050